=== PATIENT | male | born 1945 | race Caucasian/White ===

== ENCOUNTER 2017-06-11 16:45 | Observation (INO) | payer MEDICARE ==
[2017-06-11] MEDS ORDERED: Acetaminophen 500 MG TAB ONE (17:59)
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
[2017-06-11] MEDS ORDERED: Dextrose 5% in Water 1,000 ML IV PRN (18:48)
[2017-06-11] MEDS ORDERED: HumaLOG 300 UNITS/3 ML VIAL SC PRN (18:48)
[2017-06-11] MEDS ORDERED: Promethazine HCl 25 MG/ML VIAL IM PRN ×2 (18:48)
[2017-06-11] MEDS ORDERED: Ondansetron ODT 4 MG TAB PO PRN (18:48)
[2017-06-11] MEDS ORDERED: Ondansetron HCl/PF 4 MG/2 ML Vial IVP PRN (18:48)
[2017-06-11] MEDS ORDERED: Dextrose 50% Abboject 50 ML SYRINGE SLOW IVP PRN (18:48)
[2017-06-11] MEDS ORDERED: Rib Fracture Protocol PO SCH (19:00)
[2017-06-11] MEDS ORDERED: Cyclobenzaprine 10 MG TAB PO PRN (19:15)
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
[2017-06-11] MEDS: Ibuprofen 600 MG TAB PO SCH (21:28)
[2017-06-11] MEDS: Gabapentin 100 MG CAP PO SCH (21:28)
[2017-06-11] MEDS: Acetaminophen 500 MG TAB PO SCH (23:54)
[2017-06-11] MEDS: traMADol HCl 50 MG TAB PO SCH (23:55)
[2017-06-12 02:31] VITALS: BMI 26.3
[2017-06-12 05:09] LABS: #Eosinphils 0.1 thou/uL (0.0-0.7); #Lymphocytes 1.6 thou/uL (1.20-3.40); #Monocytes 0.5 thou/uL (0.11-0.59); #Neutrophils 4.2 thou/uL (1.40-6.50); %Basophils 0.5 % (0.0-1.0); %Eosinophils 1.6 % (0.0-10.0); %Lymphocytes 24.8 % (21.0-51.0); %Monocytes 7.4 % (0.0-10.0); %Neutrophils 65.7 % (42.0-75.0); Hemoglobin 14.4 g/dL (14.0-18.0); Mean Corpuscular HGB CONC 32.7 g/dL (32.0-36.0); Mean Corpuscular Hemoglobin 30.1 pg (27.0-31.0); Mean Platelet Volume 7.4 fL (7.4-10.4); Platelet Count 158 thou/uL (130-400); RBC Distribution Width 11.7 % (11.5-14.5); Red Blood Cell (RBC) Count 4.79 mill/uL (4.70-6.10); White Blood Cell (WBC) Count 6.4 thou/uL (4.8-10.8)
[2017-06-12 05:37] LABS: ALT (SGPT) 26 U/L (8-55); AST (SGOT) 24 U/L (5-34); Albumin 3.9 g/dL (3.4-4.8); Alkaline Phosphatase 76 U/L (40-150); Anion Gap 11 mmol/L (10-20); BUN (Urea Nitrogen) 17 mg/dL (8.4-25.7); Bilirubin, Total 0.7 mg/dL (0.2-1.2); Calc. Creatinine Clearance 76 mL/min (70-130); Calcium 9.1 mg/dL (7.8-10.44); Carbon Dioxide 25 mmol/L (23-31); Chloride 107 mmol/L (98-107); Estimated GFR-MDRD 59; Globulin 2.8 g/dL (2.4-3.5); Glucose 215 mg/dL (80-115); Lipase 170 U/L (8-78); Potassium 4.2 mmol/L (3.5-5.1); Protein, Total 6.7 g/dL (5.8-8.1); Sodium 139 mmol/L (136-145)
[2017-06-12] MEDS: Acetaminophen 500 MG TAB PO SCH ×2 (05:47→12:03)
[2017-06-12] MEDS: traMADol HCl 50 MG TAB PO SCH ×2 (05:47→12:03)
[2017-06-12] MEDS: Ibuprofen 600 MG TAB PO SCH (05:47)
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
[2017-06-12] MEDS ORDERED: Carvedilol 3.125 MG TAB PO SCH (08:00)
[2017-06-12] MEDS: Gabapentin 100 MG CAP PO SCH (08:46)
[2017-06-12] MEDS ORDERED: Amlodipine 5 MG TAB PO SCH (09:00)
[2017-06-12 11:29] VITALS: BP 146/83; TEMP 97.9
== END 2017-06-12 12:10 | disposition home or self-care (01) ==
LOC: ERS 16:45 → SURG A 18:48
PROVIDERS: ADMIT Surgery; ATTEND Surgery
DX: S32.010A Wedge compression fracture of first lumbar vertebra, initial encounter for closed fracture (principal); S32.020A Wedge compression fracture of second lumbar vertebra, initial encounter for closed fracture; E11.9 Type 2 diabetes mellitus without complications; I10 Essential (primary) hypertension; I25.10 Atherosclerotic heart disease of native coronary artery without angina pectoris; G89.11 Acute pain due to trauma; Z95.1 Presence of aortocoronary bypass graft; Z95.5 Presence of coronary angioplasty implant and graft; Z79.02 Long term (current) use of antithrombotics/antiplatelets; Z79.82 Long term (current) use of aspirin; Z79.84 Long term (current) use of oral hypoglycemic drugs; Z79.899 Other long term (current) drug therapy; V53.5XXA Driver of pick-up truck or van injured in collision with car, pick-up truck or van in traffic accident, initial encounter
CPT/HCPCS: 71045; 72100; 72170; 80053; 82962 ×2; 83690; 85025; 94640; 97139; 99285; G0378; G8978; G8979; G8980; 36415; 36416; G0390; J7620

== ENCOUNTER 2017-07-04 13:51 | Outpatient (CLI) | payer MEDICARE ==
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
== END 2017-07-04 13:52 | disposition home or self-care (01) ==
LOC: TBSIIMAG 13:51
PROVIDERS: ATTEND Neurological Surgery
DX: S32.019A Unspecified fracture of first lumbar vertebra, initial encounter for closed fracture (principal); S32.029A Unspecified fracture of second lumbar vertebra, initial encounter for closed fracture
CPT/HCPCS: 72100

== ENCOUNTER 2017-08-30 12:32 | Outpatient (CLI) | payer MEDICARE ==
--- NOTE | 2017-08-30 13:55 | RAD ---
LUMBAR SPINE SERIES TWO VIEWS: HISTORY: Follow-up fracture. FINDINGS: The superior endplate L1 and L2 compression fractures are again demonstrated. They are felt to be st able, as compared to the prior study. Arthritic changes of the spine are noted. The bones are diffu sely demineralized. IMPRESSION: Stable superior endplate L1 and L2 compression fractures. POS: [facility]
== END 2017-08-30 12:33 | disposition home or self-care (01) ==
LOC: TBSIIMAG 12:32
PROVIDERS: ATTEND Neurological Surgery
DX: M48.56XA Collapsed vertebra, not elsewhere classified, lumbar region, initial encounter for fracture (principal)
CPT/HCPCS: 72100

== ENCOUNTER 2017-11-26 07:38 | Emergency (ER) | payer MEDICARE ==
[2017-11-26] MEDS ORDERED: hydrALAZINE 20 MG/ML VIAL ONE ×2 (08:17→09:02)
[2017-11-26 08:45] LABS: ALT (SGPT) 26 U/L (8-55); AST (SGOT) 27 U/L (5-34); Albumin 4.3 g/dL (3.4-4.8); Alkaline Phosphatase 74 U/L (40-150); Anion Gap 16 mmol/L (10-20); BUN (Urea Nitrogen) 14 mg/dL (8.4-25.7); Bilirubin, Total 0.6 mg/dL (0.2-1.2); CK (CPK) 89 U/L (30-200); Calc. Creatinine Clearance 0 mL/min (70-130); Calcium 9.5 mg/dL (7.8-10.44); Carbon Dioxide 18 mmol/L (23-31); Chloride 108 mmol/L (98-107); Estimated GFR-MDRD 73; Globulin 3.4 g/dL (2.4-3.5); Glucose 207 mg/dL (80-115); Potassium 4.3 mmol/L (3.5-5.1); Protein, Total 7.7 g/dL (5.8-8.1); Sodium 138 mmol/L (136-145)
[2017-11-26 08:47] LABS: CKMB 1.3 ng/mL (0-6.6); Troponin I 0.054 ng/mL (< 0.028)
[2017-11-26 08:48] LABS: #Eosinphils 0.1 thou/uL (0.0-0.7); #Lymphocytes 1.6 thou/uL (1.20-3.40); #Monocytes 0.4 thou/uL (0.11-0.59); #Neutrophils 3.2 thou/uL (1.40-6.50); %Basophils 0.3 % (0.0-1.0); %Eosinophils 1.7 % (0.0-10.0); %Lymphocytes 30.9 % (21.0-51.0); %Monocytes 7.4 % (0.0-10.0); %Neutrophils 59.7 % (42.0-75.0); Hemoglobin 15.3 g/dL (14.0-18.0); Mean Corpuscular HGB CONC 34.8 g/dL (32.0-36.0); Mean Corpuscular Hemoglobin 31.2 pg (27.0-31.0); Mean Corpuscular Volume 89.7 fL (78.0-98.0); Mean Platelet Volume 7.8 fL (7.4-10.4); Platelet Count 176 thou/uL (130-400); RBC Distribution Width 11.9 % (11.5-14.5); Red Blood Cell (RBC) Count 4.91 mill/uL (4.70-6.10); White Blood Cell (WBC) Count 5.3 thou/uL (4.8-10.8)
--- NOTE | 2017-11-26 08:55 | RAD ---
AP VIEW OF CHEST: Date: 11/26/17 INDICATION: 71-year-old male with chest pain, hypertension, and pain. IMPRESSION: No acute abnormality. Examination is not appreciably changed from the comparison dated 06/11/17. POS: [facility]
[2017-11-26 11:00] LABS: CKMB 1.4 ng/mL (0-6.6); Troponin I 0.052 ng/mL (< 0.028)
== END 2017-11-26 11:27 | disposition home or self-care (01) ==
LOC: ERS 07:38
DX: I16.0 Hypertensive urgency (principal); E11.9 Type 2 diabetes mellitus without complications; I10 Essential (primary) hypertension; Z79.82 Long term (current) use of aspirin; Z79.899 Other long term (current) drug therapy
CPT/HCPCS: 36415; 71045; 80053; 82550; 82553; 83880; 84484; 85025; 93005; 96374; 96376; J0360

== ENCOUNTER 2017-11-28 18:31 | Emergency (ER) | payer MEDICARE ==
[2017-11-28 18:54] LABS: #Basophils 0.1 thou/uL (0.0-0.2); #Eosinphils 0.1 thou/uL (0.0-0.7); #Lymphocytes 2.8 thou/uL (1.20-3.40); #Monocytes 0.5 thou/uL (0.11-0.59); #Neutrophils 3.8 thou/uL (1.40-6.50); %Basophils 0.8 % (0.0-1.0); %Neutrophils 52.2 % (42.0-75.0); Hemoglobin 16.1 g/dL (14.0-18.0); Mean Corpuscular HGB CONC 34.3 g/dL (32.0-36.0); Mean Corpuscular Hemoglobin 30.4 pg (27.0-31.0); Mean Corpuscular Volume 88.7 fL (78.0-98.0); Mean Platelet Volume 7.4 fL (7.4-10.4); Platelet Count 204 thou/uL (130-400); RBC Distribution Width 12.1 % (11.5-14.5); White Blood Cell (WBC) Count 7.3 thou/uL (4.8-10.8)
[2017-11-28 19:17] LABS: ALT (SGPT) 23 U/L (8-55); AST (SGOT) 24 U/L (5-34); Albumin 4.6 g/dL (3.4-4.8); Alkaline Phosphatase 79 U/L (40-150); Anion Gap 14 mmol/L (10-20); BUN (Urea Nitrogen) 17 mg/dL (8.4-25.7); Bilirubin, Total 0.5 mg/dL (0.2-1.2); CK (CPK) 87 U/L (30-200); Calc. Creatinine Clearance 0 mL/min (70-130); Calcium 10.5 mg/dL (7.8-10.44); Carbon Dioxide 26 mmol/L (23-31); Chloride 104 mmol/L (98-107); Estimated GFR-MDRD 61; Globulin 3.5 g/dL (2.4-3.5); Glucose 165 mg/dL (80-115); Lipase 38 U/L (8-78); Potassium 4.5 mmol/L (3.5-5.1); Protein, Total 8.1 g/dL (5.8-8.1); Sodium 139 mmol/L (136-145)
--- NOTE | 2017-11-28 19:21 | RAD ---
RADIOGRAPH CHEST 1 VIEW: HISTORY: A 71-year-old male with chest pain. FINDINGS: There are no air space densities, pulmonary edema, pneumothorax, or cardiomegaly. The lateral costop hrenic angles are sharp. Sternotomy wires. IMPRESSION: No acute cardiopulmonary findings. prema [] POS: [facility]
[2017-11-28 19:29] LABS: CKMB 1.4 ng/mL (0-6.6); Troponin I 0.063 ng/mL (< 0.028)
== END 2017-11-28 20:02 | disposition home or self-care (01) ==
LOC: ERS 18:31
DX: I16.0 Hypertensive urgency (principal); E11.9 Type 2 diabetes mellitus without complications; I10 Essential (primary) hypertension; Z79.899 Other long term (current) drug therapy; Z79.82 Long term (current) use of aspirin; Z79.891 Long term (current) use of opiate analgesic
CPT/HCPCS: 71045; 80053; 82550; 82553; 83690; 83880; 84484; 85025; 93005

== ENCOUNTER 2017-12-20 10:14 | Outpatient (CLI) | payer MEDICARE | END 2017-12-20 10:15 | disposition home or self-care (01) | LOC: BICRAD 10:14 | PROVIDERS: ATTEND Family Medicine | DX: M25.532 Pain in left wrist (principal); S49.92XA Unspecified injury of left shoulder and upper arm, initial encounter; E11.9 Type 2 diabetes mellitus without complications | CPT/HCPCS: 36415; 80053; 80061; 81001; 83036; 85025 ==

== ENCOUNTER 2018-02-21 08:31 | Inpatient (IN) | payer MEDICARE ==
[2018-02-21 09:10] LABS: #Eosinphils 0.1 thou/uL (0.0-0.7); #Lymphocytes 1.9 thou/uL (1.20-3.40); #Monocytes 0.4 thou/uL (0.11-0.59); #Neutrophils 3.8 thou/uL (1.40-6.50); %Basophils 0.6 % (0.0-1.0); %Eosinophils 1.6 % (0.0-10.0); %Lymphocytes 30.4 % (21.0-51.0); %Monocytes 6.6 % (0.0-10.0); %Neutrophils 60.8 % (42.0-75.0); Hemoglobin 15.7 g/dL (14.0-18.0); Mean Corpuscular Hemoglobin 29.9 pg (27.0-31.0); Mean Corpuscular Volume 90.7 fL (78.0-98.0); Mean Platelet Volume 8.1 fL (7.4-10.4); Platelet Count 203 thou/uL (130-400); Red Blood Cell (RBC) Count 5.27 mill/uL (4.70-6.10); White Blood Cell (WBC) Count 6.3 thou/uL (4.8-10.8)
--- NOTE | 2018-02-21 09:10 | RAD ---
PORTABLE CHEST ONE VIEW: Date: 02-21-18 Time: 8:49 a.m. History: Back pain, coronary artery disease. FINDINGS: Comparison made with exam of 11-28-17. Changes of median sternotomy are again seen. Heart size is normal. The aorta is tortuous. The lungs a re well expanded without focal areas of consolidation, pneumothorax or pleural effusions. IMPRESSION: No radiographic evidence of acute cardiopulmonary process. POS: [facility]
[2018-02-21 09:17] LABS: ALT (SGPT) 20 U/L (8-55); AST (SGOT) 25 U/L (5-34); Albumin 4.4 g/dL (3.4-4.8); Alkaline Phosphatase 71 U/L (40-150); Anion Gap 14 mmol/L (10-20); BUN (Urea Nitrogen) 16 mg/dL (8.4-25.7); Bilirubin, Total 0.7 mg/dL (0.2-1.2); CK (CPK) 83 U/L (30-200); Calc. Creatinine Clearance 0 mL/min (70-130); Calcium 9.6 mg/dL (7.8-10.44); Carbon Dioxide 23 mmol/L (23-31); Chloride 106 mmol/L (98-107); Estimated GFR-MDRD 70; Globulin 3.4 g/dL (2.4-3.5); Glucose 174 mg/dL (80-115); Potassium 4.2 mmol/L (3.5-5.1); Protein, Total 7.8 g/dL (5.8-8.1); Sodium 139 mmol/L (136-145)
[2018-02-21 09:22] LABS: CKMB 1.7 ng/mL (0-6.6)
[2018-02-21 12:20] LABS: Troponin I 0.078 ng/mL (< 0.028)
[2018-02-21] MEDS ORDERED: Dextrose 5% in Water 1,000 ML IV PRN (13:29)
[2018-02-21] MEDS ORDERED: Zolpidem Tartrate 5 MG TAB PO PRN (13:29)
[2018-02-21] MEDS ORDERED: Insulin Regular 300 UNITS/3 ML VIAL SC PRN (13:29)
[2018-02-21] MEDS ORDERED: Acetaminophen 325 MG TAB PO PRN (13:29)
[2018-02-21] MEDS ORDERED: Dextrose 50% Abboject 50 ML SYRINGE SLOW IVP PRN (13:29)
[2018-02-21] MEDS ORDERED: Ondansetron PF 4 MG/2 ML Vial IVP PRN (13:29)
[2018-02-21] MEDS ORDERED: Ondansetron ODT 4 MG TAB PO PRN (13:29)
[2018-02-21] MEDS ORDERED: Mag-Al 1200 mg/1200 mg/30 ML UDCUP PO PRN (13:33)
[2018-02-21 15:26] LABS: Troponin I 0.064 ng/mL (< 0.028)
[2018-02-21] MEDS: Glimepiride 4 MG TAB PO SCH (16:29)
[2018-02-21] MEDS: Acetaminophen 500 MG TAB PO SCH ×4 (17:33→21:23)
[2018-02-21 17:48] VITALS: BMI 26.9
--- NOTE | 2018-02-21 18:46 | HP ---
HISTORY OF PRESENT ILLNESS: The patient is a 72-year-old male with known history of atherosclerotic coronary artery disease. He reports in the emergency room complaining of upper back pain with some pain noted to the right sided of his jaw. This is similar pain that he had had previously to MT, which required cardiac bypass surgery. He noted the onset of pain yesterday, continued to worsen. He did not note any shortness of breath. No fever was noted. He brought himself to the emergency room. He was seen and evaluated in the emergency room. EKG showed further progression of the left bundle branch block as well as initial troponin of 0.080, which was mildly elevated. Otherwise, no other medical complaints were noted. The patient was treated in the emergency room. He had resolution of his discomfort with aspirin 325 mg. Upon my arrival, the patient was resting comfortably. He did not note any chest pain during this time. No shortness of breath. Just noted that he had upper back and neck pain as well as right jaw pain, which was similar to previous series of problems, which go back to previous MT requiring bypass surgery. Otherwise, he notes no other medical complaints at this time. He is currently resting comfortably. ALLERGIES: HE HAS NO KNOWN ALLERGIES. CURRENT MEDICATIONS: 1. Aspirin 81 mg daily. 2. Amlodipine 5 mg daily. 3. Plavix 75 mg daily. 4. Glimepiride 4 mg one tablet b.i.d. 5. Pantoprazole 40 mg daily. 6. Trulicity 1.5 mg shot per week. 7. Clonidine 0.1 mg as needed for elevated blood pressure. 8. Carvedilol 3.125 mg b.i.d. 9. Toujeo SoloStar insulin 10 units daily. PAST MEDICAL HISTORY: Medical history is positive for atherosclerotic coronary artery disease, hypertension, type 2 diabetes mellitus. PAST SURGICAL HISTORY: Positive for tonsillectomy, cardiac bypass in 2001, and repeat cardiac bypass in 2009. FAMILY HISTORY: Positive for atherosclerotic coronary artery disease. SOCIAL AND PERSONAL HISTORY: He is retired. He is . He does not smoke nor he drinks alcohol. PHYSICAL EXAMINATION: VITAL SIGNS: BP is 151/98, pulse 85, respirations 20, O2 sat is 95% on room air. GENERAL: He is alert and active. Does not appear to be in any distress. HEENT: Normocephalic, atraumatic. Extraocular muscles intact. . NECK: Supple. Full range of motion. No masses. LUNGS: Clear. HEART: Reveals regular rate and rhythm without murmur, gallops, or rubs. ABDOMEN: Soft, nontender. Bowel sounds present and active. No hepatosplenomegaly. rebound or guarding noted at this time. EXTREMITIES: No clubbing, edema, or cyanosis. NEUROLOGIC: He is alert and oriented x3. He is able to move all extremities. Responds to all verbal commands. LABORATORY DATA: His hemoglobin is 14.7, hematocrit 47.8. Sodium 139, potassium 4.2, chloride 106, CO2 of 23, BUN 16, creatinine 1.05. Blood sugar 174. Troponin 0.80. Final troponin 0.78. Chest x-ray, no acute cardiopulmonary process is identified. EKG does reveal complete right bundle branch block. This apparently is different than previous EKG, which has showed incomplete left bundle branch block. IMPRESSION: A 72-year-old male with history of atherosclerotic coronary artery disease, who has symptoms similar to previous bouts of myocardial infarction elevated troponins with EKG changes. PLAN: The patient will be admitted to observation. Cardiology consult will be obtained. We will continue current treatment protocol at this time. Job ID: [id number]
[2018-02-21] MEDS: Carvedilol 3.125 MG TAB PO SCH (21:23)
[2018-02-22] MEDS: Acetaminophen 500 MG TAB PO SCH ×3 (06:51→17:04)
[2018-02-22] MEDS ORDERED: Enoxaparin Sodium 40 MG/0.4 ML SYRINGE SC SCH (09:00)
[2018-02-22] MEDS ORDERED: Amlodipine 5 MG TAB PO SCH (09:00)
[2018-02-22] MEDS ORDERED: Clopidogrel Bisulfate 75 MG TAB PO SCH (09:00)
[2018-02-22 09:30] VITALS: TEMP 98.3
--- NOTE | 2018-02-22 10:50 | PDOC.CTH ---
<Kristel Hernandez - Last Filed: 02/22/18 10:48> Cardiology Progress Note - Subjective The pt seen and examined. No overnight events. No cardiac complaints. - Objective Vital Signs Temp Pulse Resp BP Pulse Ox 02/22/18 08:17 94 L 02/22/18 07:58 98.3 F 76 16 152/92 H 96 02/22/18 04:12 97.9 F 81 19 112/75 94 L Weight 209 lb 4.8 oz - Physical Examination General/Neuro: alert & oriented x3 Neck: no JVD present Lungs: CTA Heart: RRR Abdomen: soft Extremities: other: (No edema) - Telemetry Telemetry Rhythm: SR - Labs Result Diagrams: 02/21/18 08:43 02/21/18 08:43 Troponin/CKMB CK-MB (CK-2) 1.7 ng/mL (0-6.6) 02/21/18 08:43 Troponin I 0.064 ng/mL (< 0.028) H 02/21/18 14:45 - Assessment/Plan 1. HTN urgency - BP this AM is slightly high; however, he has not taken any AM BP med this AM. Will start Lisinopril 5 mg qd from today for HTN and hx of DM. 2. Hx of LBBB - no changed 3. CAD with Hx of CABG in 2004 and 2010; and Stent x1 in 08/2016 - stable; Stress test today; On Bblocker, Satin, Plavix and ASA. 4. DM type 2 - managed by PCP 5. Anxiety - stable MAR reviewed Review of Systems - Review of Systems Constitutional: reports: no symptoms reported EENTM: reports: no symptoms reported Respiratory: reports: no symptoms reported Cardiac (ROS): reports: no symptoms reported ABD/GI: reports: no symptoms reported : reports: no symptoms reported Musculoskeletal: reports: no symptoms reported Skin: reports: no symptoms reported <Therese Montes - Last Filed: 02/22/18 16:24> Cardiology Progress Note - Objective Vital Signs Temp Pulse Resp BP Pulse Ox 02/22/18 11:53 98.3 F 80 18 169/90 H 95 02/22/18 08:17 94 L 02/22/18 07:58 98.3 F 76 16 152/92 H 96 Weight 209 lb 4.8 oz - Labs Result Diagrams: 02/21/18 08:43 02/21/18 08:43 Troponin/CKMB CK-MB (CK-2) 1.7 ng/mL (0-6.6) 02/21/18 08:43 Troponin I 0.064 ng/mL (< 0.028) H 02/21/18 14:45 - Assessment/Plan pt. seen and eval. by me. Small area of possible ischemia. Known CAD. Treat medically for now. If symptoms return then consider cath. Okay to d/c to home. Follow up in 1 week with me in the office. RT to ER if symptoms return. Increase Coreg as tolerated. Increased lisinopril. Chest clear. RRR. LBBB is not new from his last office visit.
[2018-02-22] MEDS ORDERED: Lisinopril 5 MG TAB PO SCH ×2 (11:00→12:00)
[2018-02-22] MEDS: Glimepiride 4 MG TAB PO SCH ×2 (11:59→17:04)
[2018-02-22] MEDS: Carvedilol 3.125 MG TAB PO SCH (12:00)
--- NOTE | 2018-02-22 15:00 | NM ---
NUCLEAR MEDICINE CARDIAC MYOCARDIAL PERFUSION SPECT EJECTION FRACTION STUDY WALL MOTION CINE: DATE: 02/22/2018. HISTORY: A 72-year-old male with coronary artery disease, hypertension, and diabetes mellitus, status post cor onary artery bypass graft surgery, presents with chest pain. TECHNIQUE: Number of days: One. Rest study: Tc99m sestamibi (Cardiolite) dose: 10.0 mCi. Pharmacologic stress: Lexiscan dose: 0.4 mg Stress study: Tc99m sestamibi (Cardiolite) dose: 32.0 mCi. FINDINGS: CARDIAC (MYOCARDIAL PERFUSION) SPECT There is a reversible perfusion defect involving the apex, extending to involve the small adjacent po rtions of the inferolateral and anteroseptal regions near the apex. There is a subtle finding of possible reversible perfusion defect involving a small portion of the an terolateral wall. EJECTION FRACTION STUDY EF = 52%. WALL MOTION CINE Severe septal hypokinesis, also involving the apex. IMPRESSION: 1. Suspicious for reversible ischemia at the cardiac apex. 2. Questionable smaller region of reversible ischemia in the anterolateral wall. FELICITY Mo POS: [facility]
[2018-02-22] MEDS ORDERED: Regadenoson 0.4 MG/5 ML SYRINGE ONE (15:26)
--- NOTE | 2018-02-22 15:53 | CON ---
DATE OF CONSULTATION: 02/22/2018 SUBJECTIVE: Mr. Kellogg is feeling better. He has had no further chest pain or back pain. OBJECTIVE: VITAL SIGNS: His blood pressure is 169/90, temperature 98.3. LUNGS: Clear. HEART: Reveals no murmur. IMPRESSION: Chest pain and back pain, possible angina equivalent. PLAN: The patient had undergone stress test results. Further recommendation per Cardiology. Job ID: [id number]
[2018-02-22] MEDS ORDERED: Carvedilol 3.125 MG TAB PO SCH (16:21)
[2018-02-22 16:44] VITALS: BP 128/81
[2018-02-22] MEDS ORDERED: Atorvastatin Calcium 20 MG TAB PO SCH (21:00)
[2018-02-22] MEDS ORDERED: Carvedilol 6.25 MG TAB PO SCH (21:00)
[2018-02-23] MEDS ORDERED: Lisinopril 5 MG TAB PO SCH (09:00)
[2018-02-23] MEDS ORDERED: Lisinopril 10 MG TAB PO SCH (09:00)
[2018-02-27] MEDS ORDERED: (Dulaglutide [Trulicity] 1.5 MG) SQ SCH (09:00)
== END 2018-02-22 17:55 | disposition home or self-care (01) | DRG 303 ==
LOC: ERS 08:31 → ERHOLD 10:05 → 2NO 15:14
PROVIDERS: ADMIT Family Medicine; ATTEND Family Medicine
DX: I25.110 Atherosclerotic heart disease of native coronary artery with unstable angina pectoris (principal); Z95.1 Presence of aortocoronary bypass graft; I10 Essential (primary) hypertension; E11.9 Type 2 diabetes mellitus without complications; I25.2 Old myocardial infarction
CPT/HCPCS: 36415; 36416; 71045; 78452; 80053; 82550; 82553; 83690; 83880; 84484; 85025; 93005; 93017; 94760; 96360; 96361; A9500; J1650; J2785

== ENCOUNTER 2019-08-15 00:47 | Observation (INO) | payer MEDICARE ==
[2019-08-15] MEDS ORDERED: Nitroglycerin 0.4 MG TAB 1 EACH ONE (01:18)
[2019-08-15] MEDS ORDERED: Nitroglycerin 2% Ointment 1 INCH/1 GM Packet ONE (01:18)
[2019-08-15 01:28] LABS: #Basophils 0.1 thou/uL (0.0-0.2); #Eosinphils 0.1 thou/uL (0.0-0.7); #Lymphocytes 2.4 thou/uL (1.20-3.40); #Monocytes 0.5 thou/uL (0.11-0.59); #Neutrophils 3.3 thou/uL (1.40-6.50); %Basophils 0.9 % (0.0-1.0); %Eosinophils 2.3 % (0.0-10.0); %Monocytes 7.9 % (0.0-10.0); Hemoglobin 15.5 g/dL (14.0-18.0); Mean Corpuscular HGB CONC 32.8 g/dL (32.0-36.0); Mean Corpuscular Hemoglobin 29.8 pg (27.0-31.0); Mean Corpuscular Volume 91.1 fL (78.0-98.0); Mean Platelet Volume 8.1 fL (7.4-10.4); Platelet Count 183 thou/uL (130-400); RBC Distribution Width 12.3 % (11.5-14.5); Red Blood Cell (RBC) Count 5.18 mill/uL (4.70-6.10); White Blood Cell (WBC) Count 6.4 thou/uL (4.8-10.8)
[2019-08-15 01:47] LABS: ALT (SGPT) 11 U/L (8-55); AST (SGOT) 14 U/L (5-34); Albumin 4.2 g/dL (3.4-4.8); Alkaline Phosphatase 70 U/L (40-110); Anion Gap 15 mmol/L (10-20); BUN (Urea Nitrogen) 21 mg/dL (8.4-25.7); Bilirubin, Total 0.4 mg/dL (0.2-1.2); Calc. Creatinine Clearance 0 mL/min (70-130); Calcium 9.3 mg/dL (7.8-10.44); Carbon Dioxide 20 mmol/L (23-31); Chloride 108 mmol/L (98-107); Estimated GFR-MDRD 60; Globulin 3.3 g/dL (2.4-3.5); Glucose 215 mg/dL (83-110); Potassium 4.1 mmol/L (3.5-5.1); Protein, Total 7.5 g/dL (5.8-8.1); Sodium 139 mmol/L (136-145)
[2019-08-15] MEDS ORDERED: Enoxaparin Sodium 100 MG/ML SYRINGE ONE (02:06)
[2019-08-15 02:10] LABS: CKMB 1.6 ng/mL (0-6.6)
[2019-08-15] MEDS ORDERED: Nitroglycerin 0.4 MG TAB (25 Tab Bottle) PO PRN (03:11)
[2019-08-15] MEDS ORDERED: Dextrose 5% in Water 1,000 ML IV PRN (03:14)
[2019-08-15] MEDS ORDERED: HumaLOG 300 UNITS/3 ML VIAL SC PRN ×2 (03:14)
[2019-08-15] MEDS ORDERED: Dextrose 50% Abboject 50 ML SYRINGE SLOW IVP PRN (03:14)
[2019-08-15] MEDS ORDERED: Acetaminophen 325 MG TAB PO PRN (03:16)
[2019-08-15] MEDS ORDERED: hydrALAZINE 20 MG/ML VIAL SLOW IVP PRN (03:19)
--- NOTE | 2019-08-15 03:30 | PDOC.HHP ---
Hospitalist HPI - History of Present Illness High blood pressure History of Present Illness: PCP: Dr. Joe Gloria Septic Technician: Dr. Montes The patient is a 73/M with PMH significant for CABG x3 (2001), CABG x 4 (2009), MA w/ stent (2017), HTN, HLD, and DMII that presents to the ER for the above complaint. The patient reports elevated blood pressure readings for the past 2- 3 weeks. Recalls, two distinct episodes. The last episode was at 1800 this evening. Reports while working in his yard, "feeling odd, maybe light headed" with associated chest pain, describes as generalized, dull aching, pressure. He gets this feeling when his blood pressure is elevated. He checked his blood pressure and it was SBP 200s, so he took aspirin and an "extra blood pressure pill" and the symptoms resolved. Later, that evening, while laying down, he had the same feeling, checked his blood pressure and it was elevated again. Denies heart palpitations, lower extremity swelling. Denies SOB, cough or wheezing. Denies abdominal pain, nausea and diaphoresis. States that this feeling is different then when he had his heart attack. He decided to go to the ER for further evaluation. ED Course: EKG SA 68, LBBB, no acute pathology Trop 0.128, BNP 43.7 CXR no acute process Given: LMWH 1mg/KG ASA 324mg nitro paste nitro SL x 1 dose Allergies: NKDA Home Medications: unable to reconcile at bedside with patient Hospitalist ROS - Review of Systems Constitutional: denies: fever, chills, sweats, weakness, malaise, other Eyes: denies: pain, vision change, conjunctivae inflammation, eyelid inflammation, redness, other ENT: denies: ear pain, ear discharge, nose pain, nose discharge, nose congestion , mouth pain, mouth swelling, throat pain, throat swelling, other Respiratory: denies: cough, dry, shortness of breath, hemoptysis, SOB with excertion, pleuritic pain, sputum, wheezing, other Cardiovascular: reports: chest pain, light headedness. denies: palpitations, orthopnea, paroxysmal noc. dyspnea, edema Gastrointestinal: denies: nausea, vomiting, abdominal pain, diarrhea, constipation, melena, hematochezia, other Genitourinary: denies: dysuria, frequency, incontinence, hematuria, retention, other Skin: denies: rash, lesions, shyam, bruising, other Neurological: denies: weakness, numbness, incoordination, change in speech, confusion, seizures, other Hospitalist History - Past Medical History Cardiac: reports: CAD, HTN, MA Endocrine: reports: Diabetes (type II) - Past Surgical History Past Surgical History: reports: CABG (X3 (2001) and X4 (2009)), Tonsillectomy, Other (CAD x 1 (2017)) - Family History Family History: reports: cardiac disorder - Social History Smoking Status: Never smoker Alcohol: reports: None Drugs: reports: none Living Situation: With Family Occupation: Lives with spouse in [place], retired Activity level: independent ambulation - Exam General Appearance: NAD, awake alert Eye: anicteric sclera ENT: normocephalic atraumatic Neck: supple, no JVD Heart: RRR, no murmur, no gallops, no rubs, normal peripheral pulses Respiratory: CTAB, no wheezes, no rales, no ronchi, no tachypnea Gastrointestinal: soft, non-tender, normal bowel sounds, no guarding, no rigidity Extremities: no clubbing, no edema Skin: no lesions, no rashes Neurological: no focal deficits Psychiatric: normal affect, A&O x 3 Hospitalist Results - Labs Result Diagrams: 08/15/19 01:14 08/15/19 01:14 Lab results: WBC 6.4 thou/uL (4.8-10.8) 08/15/19 01:14 Hgb 15.5 g/dL (14.0-18.0) 08/15/19 01:14 Hct 47.2 % (42.0-52.0) 08/15/19 01:14 MCV 91.1 fL (78.0-98.0) 08/15/19 01:14 Plt Count 183 thou/uL (130-400) 08/15/19 01:14 Neutrophils % 52.0 % (42.0-75.0) 08/15/19 01:14 Sodium 139 mmol/L (136-145) 08/15/19 01:14 Potassium 4.1 mmol/L (3.5-5.1) 08/15/19 01:14 Chloride 108 mmol/L (98-107) H 08/15/19 01:14 Carbon Dioxide 20 mmol/L (23-31) L 08/15/19 01:14 BUN 21 mg/dL (8.4-25.7) 08/15/19 01:14 Creatinine 1.19 mg/dL (0.7-1.3) 08/15/19 01:14 Glucose 215 mg/dL (83-110) H 08/15/19 01:14 Calcium 9.3 mg/dL (7.8-10.44) 08/15/19 01:14 Total Bilirubin 0.4 mg/dL (0.2-1.2) 08/15/19 01:14 AST 14 U/L (5-34) 08/15/19 01:14 ALT 11 U/L (8-55) 08/15/19 01:14 Alkaline Phosphatase 70 U/L (40-110) 08/15/19 01:14 CK-MB (CK-2) 1.6 ng/mL (0-6.6) 08/15/19 01:14 Troponin I 0.128 ng/mL (< 0.028) H 08/15/19 01:14 B-Natriuretic Peptide 43.7 pg/mL (0-100) 08/15/19 01:14 Serum Total Protein 7.5 g/dL (5.8-8.1) 08/15/19 01:14 Albumin 4.2 g/dL (3.4-4.8) 08/15/19 01:14 - EKG Interpretation EKG: SA - Radiology Interpretation Chest x-ray Status: report reviewed by nj Hospitalist H&P A/P - Problem (1) NSTEMI (non-ST elevated myocardial infarction) Code(s): I21.4 - NON-ST ELEVATION (NSTEMI) MYOCARDIAL INFARCTION Status: Acute Assessment and Plan: Admit to telemetry floor, observation status Expected length of stay less than 2 midnights Patient asymptomatic, denies CP or SOB EKG SA, LBBB, no acute pathology Trop 0.128 HEART Score 7 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 and cath 2017 after MA with stent placement Will trend trops order echocardiogram Continue LMWH, ASA, plavix and nitropaste and statin Check TSH, FLP, Mag, PT/INR consult cardiology (2) Hypertensive emergency Code(s): I16.1 - HYPERTENSIVE EMERGENCY Status: Acute Assessment and Plan: BP 170s on exam Will add prn hydralazine Will continue to monitor Blood pressure (3) DMII (diabetes mellitus, type 2) Status: Chronic Assessment and Plan: Will hold home antihyperglycemics Will start mild sliding scale AC/HS accuchecks (4) HTN (hypertension) Code(s): I10 - ESSENTIAL (PRIMARY) HYPERTENSION Status: Acute Assessment and Plan: Will restart home meds when reconciled by nursing (5) HLD (hyperlipidemia) Code(s): E78.5 - HYPERLIPIDEMIA, UNSPECIFIED Status: Acute - Plan Plan: Consult walking program no DVT prophylaxis Protonix GI prophylaxis Full Code MPOA is Joellen Kellogg at [phone] Sparks
[2019-08-15 03:39] VITALS: BMI 27.8
[2019-08-15] MEDS ORDERED: Ondansetron ODT 4 MG TAB SL PRN (03:58)
[2019-08-15] MEDS ORDERED: HYDROcodone/Acetaminophen 5/325 mg Tablet PO PRN ×2 (03:58)
[2019-08-15] MEDS ORDERED: Ondansetron PF 4 MG/2 ML Vial IVP PRN (03:58)
[2019-08-15 04:35] LABS: Prothrombin Time 12.8 sec (12.0-14.7)
[2019-08-15 04:44] LABS: Cardiac Risk 4.8 (Less than 4.5)
[2019-08-15 04:57] LABS: Troponin I 0.114 ng/mL (< 0.028)
[2019-08-15] MEDS ORDERED: Nitroglycerin 2% Ointment 1 INCH/1 GM Packet TOP SCH (06:00)
[2019-08-15] MEDS: Nitroglycerin 2% Ointment 1 INCH/1 GM Packet TOP SCH ×2 (07:27→14:49)
--- NOTE | 2019-08-15 07:47 | RAD ---
SINGLE VIEW OF THE CHEST: COMPARISON: 02/21/2018. HISTORY: Fluctuating blood pressure with hypertension and chest pain. FINDINGS: A single view of the chest shows a normal-size cardiomediastinal silhouette. The patient is status p ost sternotomy. There is no evidence of consolidation, mass, or pleural effusion. IMPRESSION: No evidence of acute cardiopulmonary disease. POS: [facility]
[2019-08-15 08:26] LABS: Troponin I 0.117 ng/mL (< 0.028)
[2019-08-15] MEDS: Aspirin 81 mg Enteric Coated Tablet PO SCH (08:49)
[2019-08-15] MEDS: Clopidogrel Bisulfate 75 MG TAB PO SCH (08:50)
[2019-08-15] MEDS ORDERED: Communication Order-Pharmacy FS SCH (10:30)
[2019-08-15] MEDS ORDERED: Iopamidol 370 76% 100 ML VIAL ONE (10:47)
--- NOTE | 2019-08-15 13:15 | PDOC.HOSPP ---
- Subjective Encounter Date: 08/15/19 Encounter Time: 10:30 Subjective: lying in hte bed, no chest pain, npo for cath this afternoon. - Objective Vital Signs & Weight: Vital Signs (12 hours) Temp Pulse Resp BP Pulse Ox 08/15/19 11:09 98.1 F 66 19 140/89 97 08/15/19 07:22 98.4 F 74 16 140/81 97 08/15/19 03:30 98.1 F 77 16 131/88 95 Weight Weight 211 lb I&O: 08/14/19 08/15/19 08/16/19 06:59 06:59 06:59 Intake Total 0 Balance 0 Result Diagrams: 08/15/19 01:14 08/15/19 01:14 Additional Labs: Accuchecks 08/15/19 08/15/19 10:32 06:12 POC Glucose 112 H 186 H Hospitalist ROS - Medication Medications: Active Medications Generic Name Dose Route Start Last Admin Trade Name Freq PRN Reason Stop Dose Admin Aspirin 81 mg 08/15/19 09:00 08/15/19 08:49 Ecotrin PO 81 mg DAILY MACHO Administration Clopidogrel Bisulfate 75 mg 08/15/19 09:00 08/15/19 08:50 Plavix PO 75 mg DAILY MACHO Administration Insulin Human Lispro 0 units 08/15/19 03:14 08/15/19 06:39 Humalog SC 2 unit .MILD SLIDING SCALE PRN Administration Mild Correctional Scale Nitroglycerin 0.5 inch 08/15/19 07:00 08/15/19 07:27 Nitro-Bid 2% Ointment TOP Not Given 0700,1500,2300 MACHO Sodium Chloride 10 ml 08/15/19 09:00 08/15/19 08:50 Flush - Normal Saline IVF 10 ml Q12HR MACHO Administration - Exam General Appearance: NAD, awake alert Eye: PERRL ENT: normocephalic atraumatic Neck: supple Heart: RRR Respiratory: CTAB, normal chest expansion Gastrointestinal: soft, normal bowel sounds Neurological: no focal deficits Hosp A/P - Plan (1) NSTEMI (non-ST elevated myocardial infarction) EKG SA, LBBB, no acute pathology Trop 0.128 HEART Score 7 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
[2019-08-15 13:28] LABS: Hemoglobin 15.4 g/dL (14.0-18.0); Platelet Count 188 thou/uL (130-400)
[2019-08-15] MEDS ORDERED: Midazolam HCl 2 mg/2 ml Vial ONE (15:04)
--- NOTE | 2019-08-15 15:31 | EKG ---
Test Reason : CHEST PRESSURE Blood Pressure : / mmHG Vent. Rate : 068 BPM Atrial Rate : 068 BPM P-R Int : 160 ms QRS Dur : 152 ms QT Int : 448 ms P-R-T Axes : 038 -27 135 degrees QTc Int : 476 ms Sinus rhythm with marked sinus arrhythmia Left bundle branch block Abnormal ECG No changes from JAN 2018 Confirmed by TIMUR GALLEGOS, CELINA Renteria ([id number]), technical writer and editor ZAK KRISHNAN ([id number]) on 08/15/2019 3:30:36 PM Referred By: Confirmed By:CELINA DING MD
[2019-08-15] MEDS ORDERED: Sodium Chloride 0.9% 200 ML IV PRN (16:57)
[2019-08-15] MEDS ORDERED: Acetaminophen/Codeine 30-300mg Tablet PO PRN ×2 (16:57)
[2019-08-15] MEDS ORDERED: Nitroglycerin 0.4 MG TAB (25 Tab Bottle) SL PRN (16:57)
[2019-08-15] MEDS ORDERED: Carvedilol 6.25 MG TAB PO SCH (17:00)
[2019-08-15] MEDS: Carvedilol 6.25 MG TAB PO SCH (18:16)
[2019-08-15] MEDS ORDERED: Atorvastatin Calcium 20 MG TAB PO SCH (21:00)
[2019-08-15] MEDS ORDERED: Enoxaparin Sodium 100 MG/ML SYRINGE SC SCH (21:00)
[2019-08-15] MEDS ORDERED: Atorvastatin Calcium 40 MG TAB PO SCH (21:00)
--- NOTE | 2019-08-16 01:10 | CON ---
DATE OF CONSULTATION: INDICATION FOR CONSULTATION: This is a 73-year-old patient who has been known to me for many years now. He has history of severe coronary artery disease, underwent bypass surgery in the past and actually about 3 years ago underwent angioplasty and stent placement to an intermediate branch. He presented again at this time, having what appeared to be a possible etn-EB-[id number] elevation myocardial infarction. He has had no significant chest discomfort. However, he had some shortness of breath and was unable to do his activities. He was out spreading grass seeds when he noticed that he became very fatigued and short of breath and he was unable to continue. He then had some episodes of hypertension. He presented to the hospital. He was found to have significant hypertension. This was then brought under better control, but he continued to have slight elevation of the blood pressure, but otherwise he was doing relatively well. He denied any further chest pain. His EKG showed sinus rhythm with a left bundle-branch block. Given his history of significant coronary artery disease with very small distal vessels and diffuse disease and history of diabetes, hypertension, he was advised to undergo cardiac catheterization to re-evaluate his coronary status. I have discussed with the patient in detail with my nurse practitioner. Please refer to the notes dictated by her for the past medical history, social history, family history, review of systems, allergies and medications. PHYSICAL EXAMINATION: GENERAL: On my physical examination, the patient is alert, oriented, has no significant complaints at this time. VITAL SIGNS: Blood pressure is 131/88, heart rate is 77 and regular, respiratory rate 16, O2 saturation is 95% on room air. HEENT: Shows the head to be normocephalic and atraumatic. Carotid pulses are present. CHEST: Clear to auscultation. There are no rales, rhonchi or wheezing. CARDIOVASCULAR: Reveals a regular rate and rhythm. Normal S1, S2. There is no significant S3, S4 noted. The second heart sound is slightly split. However, there are no other significant murmurs or heaves are noted. ABDOMEN: Soft, flat, nontender. Positive bowel sounds are present. EXTREMITIES: Show no clubbing, cyanosis, or edema. Pedal pulses are present. NEUROLOGIC: The patient appears to be fully intact. SKIN: Warm and dry. PSYCHOSOCIAL: He appears to be stable. LABORATORY DATA: Please refer to the notes already dictated, most pertinent was troponin I of 0.128, which then decreased down to 0.114 and then now stable at 0.117. Blood sugars are in the 112 to 186 range. His LDL cholesterol was 108. IMPRESSION AND PLAN: 1. A 73-year-old gentleman with a history of severe 3-vessel coronary artery disease, which on his last cardiac catheterization showed total occlusion of the soboba vessels with patent grafts. He has a PAREKH to the left anterior descending artery with diffuse disease noted in the soboba LAD beyond the anastomosis of the PAREKH. He had a vein graft which was a bifurcating graft, one going to the distal left anterior descending artery and one to an intermediate branch, this vessel was intermediate branch and underwent angioplasty and stent placement about 3 years ago. The other saphenous vein graft is to the right coronary artery which had no significant stenosis nor was any distal stenosis noted in the right coronary artery previously either in the graft or the soboba distal vessel. Also, there was a saphenous vein graft which was again a bifurcated graft which goes from a diagonal branch to the first obtuse marginal branch of left circumflex. This also was patent on the last cardiac catheterization. His ejection fraction also was well preserved. At this time, echocardiogram showed ejection fraction to be about 40% to 45%. I have explained to him that he needs to undergo repeat cardiac catheterization. I have explained to him the procedure, the risks to include bleeding, infection, possible myocardial infarction, CVA, renal insufficiency, allergic contrast reaction, the possibility of and he understands and agrees with plan for cardiac catheterization today. As far as his other diagnosis with hypertension and diabetes, this will be dealt by the primary care service. We will need to continue to manage his blood pressure and his medications, also with his cholesterol. We will try to start this gentleman on Ranexa or Praluent since he says he has never been able to take statins very well but does have severe coronary artery disease. Also likely, he will be started on Ranexa due to signs of ischemia. Job ID: [id number]
[2019-08-16] MEDS: Nitroglycerin 2% Ointment 1 INCH/1 GM Packet TOP SCH ×2 (02:15→06:26)
--- NOTE | 2019-08-16 06:46 | CON ---
DATE OF CONSULTATION: PRIMARY CARE DOCTOR: Dr. Joe Gloria. PRIMARY CREW CLERK: Dr. Katina Montes. REASON FOR CARDIOLOGY CONSULT: Non-STEMI. HISTORY OF PRESENT ILLNESS: Mr. Kellogg is a very pleasant 73-year-old male with a significant history of coronary artery disease with stent placements in 2016 and CABG in 2004 and redo CABG in 2010, hypertension, diabetes. The patient was doing really well. However, in the last few days, his blood pressure has been more than 190s/60s. He took extra medicine for hypertension. According to the patient's , he took extra carvedilol 6.25 mg with extra aspirin, which made his blood pressure stabilize. However, last night around midnight, he started feeling different and his blood pressure was more than 200 on the systolic. He took extra carvedilol last night with extra aspirin. However , his systolic blood pressure continued to be more than 190s. Also, he started having pressure in his chest. Due to those reasons, the patient decided to present to the emergency department for further evaluation and treatment. He did not take the nitroglycerin at home. However, after he received nitroglycerin sublingual and paste, his chest pain subsided. At this moment, the patient has complained of mild headache. The patient denied shortness of breath, dizziness, lightheadedness, palpitation, or any other complaint during the episode. The patient had echocardiogram done today with EF 45% to 50%, inferior hypokinesis, and grade 1 diastolic dysfunction, mild tricuspid regurgitation, and mild pulmonic regurgitation. The patient has a history of coronary artery disease with CABG in in 2004 with SVG to ramus and SVG to distal LAD and PAREKH to mid LAD. He had a redo bypass in 2010 with SVG to RCA and also the left circumflex. The patient had a stent placement in August 2016 in ramus. The patient had a stress test done in January 2018 suspicious for reversible ischemia at the apex, questionable smaller region of reversible ischemia in anterolateral wall. PAST MEDICAL HISTORY: Coronary artery disease, diabetes, hypertension, nephrolithiasis in 2018, and chronic left bundle branch block. PAST SURGICAL HISTORY: CABG in 2004, redo CABG in 2010, stent placement in the ramus in August 2016. FAMILY HISTORY: The patient's mother has medical history of coronary artery disease. The patient's aunt has a medical history of coronary artery disease and renal function failure. SOCIAL HISTORY: The patient is . He lives with his . He has children who live well. He is retired. He denied EtOH, tobacco, or illicit drug abuse. ALLERGIES: HE HAS NO KNOWN DRUG ALLERGIES. MEDICATIONS: 1. Aspirin 81 mg once a day. 2. Plavix 75 mg once a day. 3. Glimepiride 4 mg twice a day. 4. Lisinopril 10 mg once a day. 5. Insulin Humalog 25 units every morning. 6. Carvedilol 6.25 mg twice a day. REVIEW OF SYSTEMS: A 12-point review of systems negative unless otherwise mentioned in HPI. PHYSICAL EXAMINATION: VITAL SIGNS: Blood pressure 140/89, temperature 98.1, pulse is 66 and in sinus rhythm, respiratory rate is 19, O2 saturation 97% on room air. GENERAL: The patient is alert and oriented x4, not in acute distress. HEAD: Normocephalic, atraumatic. EYES: Extraocular muscle movement intact. ENT AND MOUTH: Oral and nasal mucosa moist without lesion. NECK: Supple. Normal range of motion. No bruits or thrill noted at the carotid artery area. RESPIRATORY: Clear to auscultation bilaterally. No wheezing, rales, or rhonchi noted. CARDIOVASCULAR: Regular rate and rhythm. Normal S1 and S2. No S3 or S4. No significant murmur, heaves, or thrill noted. 2+ pulses in bilateral upper and lower extremities. No edema in the lower extremities. ABDOMEN: Soft, nontender. No mass to palpation. Bowel sounds are present. SKIN: Warm and dry. No lesion, rash, or erythema noted. MUSCULOSKELETAL: The patient is able to move all extremities. The patient denied claudication. NEUROLOGIC: The patient is alert and oriented x4. PSYCHIATRIC: The patient's mood is appropriate. LABORATORY DATA: WBC 6.4, hemoglobin 15.5, hematocrit 47.2, platelets 183. INR 1.0. Sodium 139, potassium 4.1, BUN 21, creatinine 1.19, glucose 112, calcium 9.3, magnesium 2.0, AST 14, ALT 11. CK-MB 1.6. Troponin 0.128, 0.114, and 0.117. Total cholesterol 172, triglyceride 139, HDL 36, LDL 108. TSH is 0.9755. DIAGNOSTIC DATA: The patient's chest x-ray shows no evidence of acute cardiopulmonary process. ASSESSMENT AND PLAN: 1. Chest pain with indeterminate troponin level. The patient has been n.p.o. The patient has a plan to undergo cardiac catheterization this afternoon by Dr. Montes. At this moment, the patient denied any chest pain, heaviness, tightness, or any other cardiac complaints. He has a nitroglycerin patch on the chest at this moment. 2. Coronary artery disease with history of coronary artery bypass grafting and stent placement. The patient's condition is stable at this moment. He is on carvedilol 6.25 mg twice a day, lisinopril 10 mg once a day, aspirin 81 mg once a day, Plavix 75 mg once a day, and atorvastatin 20 mg once a day at home. Once the patient's vital signs are stable, carvedilol and lisinopril will be resumed possibly after cardiac catheterization. 3. Hypertension. The patient's blood pressure is stable at this moment without any scheduled blood pressure medicine. We would like to continue to monitor, and we will resume the patient's home blood pressure medications. 4. Diabetes which is managed by primary care doctor. 5. Hyperlipidemia. His LDL was 108. He was not on any cholesterol medicine due to side effect from statin. He had severe myalgia and joint pain with all statin he has tried. PCSK9 inhibitor may be the best choice of his cholesterol management once the patient is ready to discharge. Thank you very much for Cardiology consult request to participate in the care of this patient. We will follow along the patient's care team and make further recommendations as appropriate. Job ID: [id number] MTDD
[2019-08-16 07:32] VITALS: TEMP 97.8
[2019-08-16] MEDS: Carvedilol 6.25 MG TAB PO SCH (08:31)
[2019-08-16] MEDS: Clopidogrel Bisulfate 75 MG TAB PO SCH (08:32)
[2019-08-16] MEDS: Aspirin 81 mg Enteric Coated Tablet PO SCH (08:32)
--- NOTE | 2019-08-16 09:41 | PDOC.CPN ---
- Subjective Date: 08/16/19 Time: 08:00 Interval history: The pt seen and examined. No overnight events. No cardiac complaints. - Objective Allergies/Adverse Reactions: Allergies Allergy/AdvReac Type Severity Reaction Status Date / Time No Known Allergies Allergy Verified 06/16/19 11:36 Visit Medications: Current Medications Acetaminophen (Tylenol) 650 mg PO Q4H PRN PRN Reason: Headache/Fever/Mild Pain (1-3) Acetaminophen/Codeine Phosphate (Tylenol #3) 1 tab PO Q4H PRN PRN Reason: Mild Pain (1-3) Acetaminophen/Codeine Phosphate (Tylenol #3) 2 tab PO Q4H PRN PRN Reason: Moderate Pain (4-6) Aspirin (Ecotrin) 81 mg PO DAILY [facility] Last Admin: 08/16/19 08:32 Dose: 81 mg Atorvastatin Calcium (Lipitor) 40 mg PO [facility] Last Admin: 08/15/19 21:01 Dose: 40 mg Carvedilol (Coreg) 12.5 mg PO BID-[facility] Last Admin: 08/16/19 08:31 Dose: 12.5 mg Clopidogrel Bisulfate (Plavix) 75 mg PO DAILY [facility] Last Admin: 08/16/19 08:32 Dose: 75 mg Dextrose/Water (Dextrose 50%) 25 gm SLOW IVP PRN PRN PRN Reason: Hypoglycemia Glucagon (Glucagon) 1 mg IM PRN PRN PRN Reason: Hypoglycemia Hydralazine HCl (Apresoline) 10 mg SLOW IVP Q4H PRN PRN Reason: SBP > 180 or DBP > 105 Dextrose/Water (D5w) 1,000 mls @ 0 mls/hr IV .Q0M PRN PRN Reason: Hypoglycemia Sodium Chloride (Normal Saline 0.9%) 200 mls @ 0 mls/hr IV ONE PRN PRN Reason: SBP < 90 Stop: 08/16/19 16:58 Insulin Human Lispro (Humalog) 0 units SC .MILD SLIDING SCALE PRN PRN Reason: Mild Correctional Scale Last Admin: 08/15/19 06:39 Dose: 2 unit Insulin Human Lispro (Humalog) 0 units SC .BEDTIME SLIDING SC PRN PRN Reason: Bedtime Correctional Scale Nitroglycerin (Nitro-Bid 2% Ointment) 0.5 inch TOP 0700,1500,2300 [facility] Last Admin: 08/16/19 06:26 Dose: Not Given Nitroglycerin (Nitrostat) 0.4 mg SL Q5MIN PRN PRN Reason: Chest Pain Pantoprazole Sodium (Protonix) 40 mg PO HS [facility] Last Admin: 08/15/19 21:01 Dose: 40 mg Ranolazine (Ranexa) 500 mg PO BID [facility] Last Admin: 08/16/19 08:31 Dose: 500 mg Sodium Chloride (Flush - Normal Saline) 10 ml IVF Q12HR [facility] Last Admin: 08/16/19 08:32 Dose: 10 ml Vital Signs & Weight: Vital Signs Temp Pulse Resp BP Pulse Ox 08/16/19 07:27 97.8 F 62 15 128/78 97 08/16/19 04:00 98.3 F 69 18 122/79 98 08/16/19 02:15 94 L Weight 211 lb - Physical Exam General: alert & oriented x3 HEENT: mucus membranes moist Neck: supple neck Cardiac: regular rate and rhythm, S1/S2 Lungs: clear to auscultation Neuro: cranial nerve 2-12 intact - Labs Result Diagrams: 08/15/19 13:12 08/15/19 13:12 Troponin/CKMB CK-MB (CK-2) 1.6 ng/mL (0-6.6) 08/15/19 01:14 Troponin I 0.117 ng/mL (< 0.028) H 08/15/19 07:48 - Telemetry Sinus rhythms and dysrhythmias: sinus rhythm - Assessment/Plan Assessment/Plan: 1. NSTEMI with s/p LHC on 08/15/2019 with 100% occulded SVG-distal LAD, 50% stenosis in prox SVG-RCA, patent SVG-OM, patent PAREKH-LAD, but subtotal LAD with diffuse dz <2.0 mm vessel. - Ranexa 500mg BID was started from last night. 2. HTN urgency - well controlled with current med (holding Lisinopril for now since Renexa was started and Coreg was increased) 3. CAD with hx of multiple CABG - On coreg, ASA, and Plavix; Will start Repatha for Lipid management 4. HLD - per pt and family, he could not tolerate Lipitor and Crestor in past ( caused severe myalgia and joint pain) and Zetia (caused severe N&V); will start Repatha (the prescription will be sent from Dr Montes' office today) 5. DM type 2 6. Anxiety - Strongly recommend to manage his anxiety issue MAR reviewed * From Cardiac standpoint, the pt is stable to d/c home today
[2019-08-16 10:14] VITALS: BP 126/73
--- NOTE | 2019-08-16 12:45 | DIS ---
DATE OF ADMISSION: 08/15/2019 DATE OF DISCHARGE: 08/16/2019 DISCHARGE DIAGNOSES: 1. Non-ST elevated myocardial infarction, status post left heart catheterization on August 14. 2. Occlusion of SVG graft. 3. Hypertensive urgency. 4. Coronary artery disease with history of multiple coronary artery bypass grafting. 5. Hyperlipidemia. 6. Type 2 diabetes mellitus. DISCHARGE MEDICATIONS: 1. Ranexa 500 mg twice a day. 2. Coreg 12.5 mg twice a day. 3. Aspirin 81 mg daily. 4. Plavix 75 mg daily. 5. Glimepiride 4 mg twice a day. 6. Lantus 25 units in the morning. 7. Lisinopril 10 mg daily. PHYSICAL EXAMINATION: VITAL SIGNS: On the day of discharge, he is afebrile. His blood pressure is 128/78, saturating 99% on room air. GENERAL: The patient is alert, oriented, in no acute distress. He is quite actually anxious to go home. His is at bedside. CARDIOVASCULAR: Regular rate and rhythm without murmurs, rubs, or gallops. LUNGS: Clear to auscultation bilaterally without wheezing, rales, or rhonchi. ABDOMEN: Soft, nontender, nondistended. Good bowel sounds. EXTREMITIES: Without any pitting edema. HOSPITAL COURSE: A 73-year-old male with a history of significant coronary artery disease, admitted on August 14 with elevated blood pressure as well as chest discomfort. He had a cath which showed 100% occlusion of the SVG and distal LAD and 50% stenosis in the proximal SVG and patent PAREKH to LAD. In this regard, he is prescribed Ranexa 500 mg twice a day and his Coreg dose has been increased. Blood pressure improved. The patient does have a history of hyperlipidemia and history of not tolerant for statins including Lipitor, Crestor, as well as Zetia, which causes severe nausea and vomiting. In this regard, he will be started with Repatha. The prescription will be sent from Dr. Montes' office to his pharmacy. With these interventions, the patient is improved enough to be going home today. DISCHARGE INSTRUCTIONS: Activity as tolerated. Healthy heart diet. Follow up with primary care physician in one week. Follow up with Dr. Montes' group in 1 to 2 weeks. Discharge time took over 30 minutes. Job ID: [id number] [facility]
== END 2019-08-16 10:55 | disposition home or self-care (01) ==
LOC: ERS 00:47 → 2NO 03:31
PROVIDERS: ADMIT Internal Medicine; ATTEND Internal Medicine
PROC: 4A023N7 Measurement of Cardiac Sampling and Pressure, Left Heart, Percutaneous Approach (ICD-10-PCS; principal; 2019-08-15)
PROC: B2111ZZ Fluoroscopy of Multiple Coronary Arteries using Low Osmolar Contrast (ICD-10-PCS; 2019-08-15)
PROC: B2131ZZ Fluoroscopy of Multiple Coronary Artery Bypass Grafts using Low Osmolar Contrast (ICD-10-PCS; 2019-08-15)
PROC: B2181ZZ Fluoroscopy of Left Internal Mammary Bypass Graft using Low Osmolar Contrast (ICD-10-PCS; 2019-08-15)
DX: I21.4 Non-ST elevation (NSTEMI) myocardial infarction (principal); I25.810 Atherosclerosis of coronary artery bypass graft(s) without angina pectoris; I25.10 Atherosclerotic heart disease of native coronary artery without angina pectoris; I16.0 Hypertensive urgency; I10 Essential (primary) hypertension; E78.5 Hyperlipidemia, unspecified; E11.9 Type 2 diabetes mellitus without complications; I44.7 Left bundle-branch block, unspecified; F41.9 Anxiety disorder, unspecified; I25.2 Old myocardial infarction; Z79.02 Long term (current) use of antithrombotics/antiplatelets; Z79.4 Long term (current) use of insulin; Z79.82 Long term (current) use of aspirin; Z79.899 Other long term (current) drug therapy; Z95.1 Presence of aortocoronary bypass graft; Z95.5 Presence of coronary angioplasty implant and graft
CPT/HCPCS: 71045; 80061; 82553; 82565; 82962 ×2; 83735; 83880; 84484 ×2; 85014; 85018; 85049; 85610; 85730; 93005; 93306; 93459; 93567; 93798; 94760 ×2; 96372; 97139; 99285; C1769; G0378 ×3; 36415; 36416; 80053; 84443; 85025; 99152; 99153; J1644; J1650; J2250; Q9967

== ENCOUNTER 2020-04-25 20:05 | Observation (INO) | payer MEDICARE ==
[2020-04-25 20:40] LABS: #Eosinphils 0.1 thou/uL (0.0-0.7); #Lymphocytes 2.3 thou/uL (1.20-3.40); #Monocytes 0.4 thou/uL (0.11-0.59); #Neutrophils 3.8 thou/uL (1.40-6.50); %Basophils 0.5 % (0.0-1.0); %Eosinophils 1.8 % (0.0-10.0); %Lymphocytes 35.2 % (21.0-51.0); %Monocytes 5.2 % (0.0-10.0); %Neutrophils 57.3 % (42.0-75.0); Hemoglobin 15.1 g/dL (14.0-18.0); Mean Corpuscular HGB CONC 33.1 g/dL (32.0-36.0); Mean Corpuscular Volume 90.5 fL (78.0-98.0); Mean Platelet Volume 7.9 fL (7.4-10.4); Platelet Count 190 thou/uL (130-400); RBC Distribution Width 11.6 % (11.5-14.5); Red Blood Cell (RBC) Count 5.03 mill/uL (4.70-6.10); White Blood Cell (WBC) Count 6.7 thou/uL (4.8-10.8)
[2020-04-25 21:01] LABS: ALT (SGPT) 15 U/L (8-55); AST (SGOT) 16 U/L (5-34); Albumin 4.1 g/dL (3.4-4.8); Alkaline Phosphatase 67 U/L (40-110); Anion Gap 12 mmol/L (10-20); BUN (Urea Nitrogen) 21 mg/dL (8.4-25.7); Bilirubin, Total 0.3 mg/dL (0.2-1.2); CK (CPK) 91 U/L (30-200); Calc. Creatinine Clearance 0 mL/min (70-130); Calcium 8.8 mg/dL (7.8-10.44); Carbon Dioxide 22 mmol/L (23-31); Chloride 108 mmol/L (98-107); Globulin 3.1 g/dL (2.4-3.5); Glucose 174 mg/dL (83-110); Lipase 38 U/L (8-78); Potassium 4.2 mmol/L (3.5-5.1); Protein, Total 7.2 g/dL (5.8-8.1); Sodium 138 mmol/L (136-145)
--- NOTE | 2020-04-25 21:02 | RAD ---
EXAM: CHEST ONE VIEW: 04/25/20 HISTORY: Chest pain. COMPARISON: 08/15/19. FINDINGS: Heart size is within normal limits. The lungs are clear of acute process. Postop midline sternotomy. IMPRESSION: No significant acute intrathoracic disease. Stable from prior study. POS: RRE
[2020-04-25 21:23] LABS: CKMB 1.8 ng/mL (0-6.6)
[2020-04-25] MEDS ORDERED: Enoxaparin Sodium 100 MG/ML SYRINGE ONE (23:01)
[2020-04-25] MEDS ORDERED: Acetaminophen 650 MG Suppository PR PRN (23:27)
[2020-04-25] MEDS ORDERED: Acetaminophen 325 MG TAB PO PRN (23:27)
[2020-04-25] MEDS ORDERED: Nitroglycerin 0.4 MG TAB (25 Tab Bottle) SL PRN (23:30)
[2020-04-25] MEDS ORDERED: Sodium Chloride 0.9% 1,000 ML IV SCH (23:30)
[2020-04-25] MEDS ORDERED: Dextrose 50% Abboject 50 ML SYRINGE SLOW IVP PRN (23:38)
[2020-04-25] MEDS ORDERED: HumaLOG 300 UNITS/3 ML VIAL SC PRN ×2 (23:38)
[2020-04-25] MEDS ORDERED: Dextrose 5% in Water 1,000 ML IV PRN (23:38)
--- NOTE | 2020-04-25 23:46 | PDOC.HHP ---
Hospitalist HPI Chest pain History of Present Illness: Patient presents to the ED with complaints of chest pain and concern over reta moore BP since yesterday. States he was sitting down when he experienced discomfort on the left side of his rib cage and left upper arm. He states it was a 1/10 in severity and felt different from pain he experienced in the past with his previous NV, however became concerned over how elevated his BP was (190s systolic). He took an extra dose of his BP medication, does not know which one, but states it didnt help. He took 4 aspirin and his pain resolved. It has not recurred since. He was admitted in 07/2019 with NSTEMI and had a heart cath done with 100% occluded SVG-distal LAD and 50% stenosis in prox SVG-RCA, patent SVG-OM, patent PAREKH-LAD, subtotal LAD with diffuse disease <2.0 mm vessel. Patient was started on Ranexa 500 mg BID. He was also started on Repatha and states his lipids improved since then. His BP is normally controlled in the 120s to 130s systolic. ED Course: 12 lead EKG: Heart rate 68, normal sinus rhythm with premature atrial complexes, left axis deviation, left bundle branch block pattern, no acute is chemic changes, no significant change from July 2019. CXR was negative. No Aspirin given since he took some at home. Initial troponin was elevated at 0.126, therefore he was given full dose Lovenox (1mg/kg). Allergies/Adverse Reactions: Allergy/AdvReac Type Severity Reaction Status Date / Time No Known Allergies Allergy Verified 06/16/19 11:36 Home Medications: Medication Instructions Recorded Confirmed Type Aspirin Chewable [Aspirin Chewable 81 mg PO DAILY tab 08/28/16 08/15/19 Rx Tablet] Clopidogrel Bisulfate [Clopidogrel] 75 mg PO DAILY 06/12/17 08/15/19 History Glimepiride 4 mg PO BID-WM 06/12/17 08/15/19 History Lisinopril [Zestril] 10 mg PO DAILY #30 tab 02/22/18 08/15/19 Rx Insulin Glargine,Hum.Rec.Anlog 25 units SQ QAM 08/15/19 08/15/19 History [Alfreda Tracy] Carvedilol [Coreg] 12.5 mg PO BID 30 Days #60 tab 08/16/19 Rx Ranolazine [Ranexa] 500 mg PO BID 30 Days #60 tab 08/16/19 Rx Past History: PMHx: CAD, HTN, Hyperlipidemia, Previous NV, type 2 DM PSHx: CABG x 3 in 2001, CABG x 4 in 2009, Cardiac stent in 2017, tonsillectomy. FHx: Positive for CAD Social: Patient is retired and . He is fully independent at baseline. No tobacco use, alcohol consumption and no drug use. Hospitalist HPI ROS Constitutional: denies: fever, chills, sweats, weakness, malaise, other Respiratory: denies: cough, dry, shortness of breath, hemoptysis, SOB with excertion, pleuritic pain, sputum, wheezing, other Cardiovascular: reports: chest pain (resolved). denies: palpitations, orthopnea, paroxysmal noc. dyspnea, edema, light headedness, other Gastrointestinal: denies: nausea, vomiting, abdominal pain, diarrhea, constipa tion, melena, hematochezia, other Genitourinary: denies: dysuria, frequency, incontinence, hematuria, retention, other Musculoskeletal: denies: neck pain, shoulder pain, arm pain, back pain, hand pain, leg pain, foot pain, other Skin: denies: rash, lesions, shyam, bruising, other All other systems reviewed; all pertinent +/- noted in HPI/Subj Hospitalist Exam General Appearance: NAD (BP: 145/93, MAP: 110, Pulse: 60, Resp: 19, Temp: 98.0 (Oral), Pain: 0, O2 sat: 97 on (Room Air),) Eye: PERRL, anicteric sclera ENT: normocephalic atraumatic, no oropharyngeal lesions Neck: supple, no lymphadenopathy Heart: RRR, normal peripheral pulses Respiratory: CTAB, no wheezes, no rales, no ronchi, normal chest expansion Respiratory - other findings: no chest wall tenderness/pain with palpation Gastrointestinal: soft, non-tender, non-distended, normal bowel sounds, no guarding, no rigidity Extremities: no edema Skin: normal turgor, no lesions, no rashes Neurological: cranial nerve grossly intact, normal sensation to touch, no weakness Musculoskeletal: normal tone, normal strength, no muscle wasting Musculoskeletal - other findings: No LUE discomfort or tenderness, normal ROM Psychiatric: normal affect, normal behavior, A&O x 3 Hospitalist Results Result Diagrams: 04/25/20 20:04/25/20 20: Lab results: Laboratory Last Values WBC 6.7 thou/uL (4.8-10.8) 04/25/20 20: RBC 5.03 mill/uL (4.70-6.10) 04/25/20 20: Hgb 15.1 g/dL (14.0-18.0) 04/25/20 20: Hct 45.6 % (42.0-52.0) 04/25/20: MCV 90.5 fL (78.0-98.0) 04/25/20: MCH 30.0 pg (27.0-31.0) 04/25/20: MCHC 33.1 g/dL (32.0-36.0) 04/25/20: RDW 11.6 % (11.5-14.5) 04/25/20: Plt Count 190 thou/uL (130-400) 04/25/20 20: MPV 7.9 fL (7.4-10.4) 04/25/20: Neutrophils % 57.3 % (42.0-75.0) 04/25/20 20: Lymphocytes % 35.2 % (21.0-51.0) 04/25/20: Monocytes % 5.2 % (0.0-10.0) 04/25/20: Eosinophils % 1.8 % (0.0-10.0) 04/25/20: Basophils % 0.5 % (0.0-1.0) 04/25/20: Neutrophils # 3.8 thou/uL (1.40-6.50) 04/25/20: Lymphocytes # 2.3 thou/uL (1.20-3.40) 04/25/20: Monocytes # 0.4 thou/uL (0.11-0.59) 04/25/20: Eosinophils # 0.1 thou/uL (0.0-0.7) 01/29/21 20:27 Basophils # 0.0 thou/uL (0.0-0.2) 04/25/20 20:27 Sodium 138 mmol/L (136-145) 04/25/20 20: Potassium 4.2 mmol/L (3.5-5.1) 04/25/20 20: Chloride 108 mmol/L (98-107) H 04/25/20 20:27 Carbon Dioxide 22 mmol/L (23-31) L 04/25/20 20: Anion Gap 12 mmol/L (10-20) 04/25/20 20:27 BUN 21 mg/dL (8.4-25.7) 04/25/20 20: Creatinine 1.33 mg/dL (0.7-1.3) H 04/25/20 20:27 Estimated GFR (MDRD) 53 04/25/20 20: Glucose 174 mg/dL (83-110) H 04/25/20 20: Calcium 8.8 mg/dL (7.8-10.44) 04/25/20 20: Total Bilirubin 0.3 mg/dL (0.2-1.2) 04/25/20 20: AST 16 U/L (5-34) 04/25/20 20: ALT 15 U/L (8-55) 04/25/20 20: Alkaline Phosphatase 67 U/L (40-110) 04/25/20 20: Creatine Kinase 91 U/L (30-200) 04/25/20 20: CK-MB (CK-2) 1.8 ng/mL (0-6.6) 04/25/20 20: Troponin I 0.126 ng/mL (< 0.028) H 04/25/20 20:27 Serum Total Protein 7.2 g/dL (5.8-8.1) 04/25/20 20: Albumin 4.1 g/dL (3.4-4.8) 04/25/20 20: Globulin 3.1 g/dL (2.4-3.5) 04/25/20 20: Albumin/Globulin Ratio 1.3 g/dL (1.2-2.2) 04/25/20: Lipase 38 U/L (8-78) 04/25/20 20:27 Chest x-ray Status: report reviewed by me Hospitalist H&P A/P (1) NSTEMI (non-ST elevated myocardial infarction) Code(s): I21.4 - NON-ST ELEVATION (NSTEMI) MYOCARDIAL INFARCTION Status: Acute (2) Hypertensive urgency Code(s): I16.0 - HYPERTENSIVE URGENCY Status: Acute (3) Chronic renal insufficiency Code(s): N18.9 - CHRONIC KIDNEY DISEASE, UNSPECIFIED Status: Chronic (4) HTN (hypertension) Code(s): I10 - ESSENTIAL (PRIMARY) HYPERTENSION Status: Chronic (5) DMII (diabetes mellitus, type 2) Status: Chronic (6) HLD (hyperlipidemia) Code(s): E78.5 - HYPERLIPIDEMIA, UNSPECIFIED Status: Chronic Plan: NSTEMI Continue to trend troponins Given Lovenox in ED Consult placed to Dr. Montes Check Lipid panel with AM labs Continue Aspirin 325 mg daily NPO after midnight Hypertensive Urgency BP improved Monitor BP Resume home medications once verified Chronic renal insufficiency Monitor renal function Resume home meds as appropriate Avoid nephrotoxic meds Gentle hydration Type 2 DM Monitor glucose ISS initiated Hyperlipidemia Resume statin once dose verified DVT Prophylaxis with mechanical SCDs, given full dose Lovenox in ED. CODE STATUS FULL Case discussed with Dr. Jones who agrees with plan as above.
[2020-04-26 01:05] VITALS: BMI 27.1
[2020-04-26 01:32] LABS: Troponin I 0.094 ng/mL (< 0.028)
[2020-04-26 03:17] LABS: #Basophils 0.1 thou/uL (0.0-0.2); #Eosinphils 0.1 thou/uL (0.0-0.7); #Lymphocytes 2.9 thou/uL (1.20-3.40); #Monocytes 0.5 thou/uL (0.11-0.59); #Neutrophils 3.8 thou/uL (1.40-6.50); %Basophils 0.9 % (0.0-1.0); %Eosinophils 1.3 % (0.0-10.0); %Monocytes 6.5 % (0.0-10.0); %Neutrophils 51.4 % (42.0-75.0); Hemoglobin 14.4 g/dL (14.0-18.0); Mean Corpuscular HGB CONC 33.5 g/dL (32.0-36.0); Mean Corpuscular Hemoglobin 30.5 pg (27.0-31.0); Mean Corpuscular Volume 90.9 fL (78.0-98.0); Platelet Count 181 thou/uL (130-400); RBC Distribution Width 11.6 % (11.5-14.5); Red Blood Cell (RBC) Count 4.71 mill/uL (4.70-6.10); White Blood Cell (WBC) Count 7.3 thou/uL (4.8-10.8)
[2020-04-26 03:31] LABS: Troponin I 0.098 ng/mL (< 0.028)
[2020-04-26 03:35] LABS: Anion Gap 13 mmol/L (10-20); BUN (Urea Nitrogen) 18 mg/dL (8.4-25.7); Calc. Creatinine Clearance 82 mL/min (70-130); Calcium 8.9 mg/dL (7.8-10.44); Carbon Dioxide 21 mmol/L (23-31); Cardiac Risk 1.9 (Less than 4.5); Chloride 108 mmol/L (98-107); Cholesterol 89 mg/dl (< 200 Desired); Glucose 145 mg/dL (83-110); HDL Cholesterol 47 mg/dL (>60 Neg Risk); LDL Cholesterol, Calculated 18 mg/dL; Sodium 138 mmol/L (136-145); Triglycerides 120 mg/dL (Less than 150)
[2020-04-26] MEDS ORDERED: FLU VACC QS2020-21(65YR UP)/PF 240 MCG/0.7 ML SYRINGE IM ONE (09:00)
[2020-04-26] MEDS ORDERED: Aspirin 325 mg Enteric Coated Tablet PO SCH (09:00)
--- NOTE | 2020-04-26 10:33 | PDOC.HOSPP ---
- Subjective Encounter Date: 04/26/20 Encounter Time: 10:32 Subjective: 74 y/o male sitting up in bed, alert and oriented. Denies any overnight events. Denies any chest pain or shortness of breath at this time. - Objective Vital Signs & Weight: Vital Signs (12 hours) Temp Pulse Resp BP BP Pulse Ox 04/26/20 07:32 97.7 F 64 17 130/75 95 04/26/20 03:45 97.5 F L 72 19 120/77 95 04/25/20 23:30 98 04/25/20 23:27 97.6 F 58 L 18 147/83 H 98 Weight Weight 206 lb 2 oz I&O: 04/25/20 04/26/20 04/27/20 06:59 06:59 06:59 Intake Total 550 Output Total 400 Balance 150 Result Diagrams: 04/26/20 03:05 04/26/20 03:05 Additional Labs: Accuchecks 04/26/20 05:34 POC Glucose 141 H Hospitalist ROS - Review of Systems Constitutional: denies: fever, chills, sweats, weakness, malaise, other Eyes: denies: pain, vision change, conjunctivae inflammation, eyelid inflammation, redness, other ENT: denies: ear pain, ear discharge, nose pain, nose discharge, nose congestion, mouth pain, mouth swelling, throat pain, throat swelling, other Respiratory: denies: cough, dry, shortness of breath, hemoptysis, SOB with excertion, pleuritic pain, sputum, wheezing, other Cardiovascular: denies: chest pain, palpitations, orthopnea, paroxysmal noc. dyspnea, edema, light headedness, other Gastrointestinal: denies: nausea, vomiting, abdominal pain, diarrhea, const ipation, melena, hematochezia, other Genitourinary: denies: dysuria, frequency, incontinence, hematuria, retention, other Musculoskeletal: denies: neck pain, shoulder pain, arm pain, back pain, hand pain, leg pain, foot pain, other Skin: denies: rash, lesions, shyam, bruising, other Neurological: denies: weakness, numbness, incoordination, change in speech, confusion, seizures, other All other systems reviewed; all pertinent +/- noted in HPI/Subj - Medication Medications: Active Medications Generic Name Dose Route Start Last Admin Trade Name Freq PRN Reason Stop Dose Admin Aspirin 325 mg 04/26/20 09:00 04/26/20 08:51 Aspirin 325 Mg Enteric Coated Tablet PO 325 mg DAILY MACHO Administration Sodium Chloride 1,000 mls @ 45 mls/hr 04/25/20 23:30 04/26/20 00:47 Normal Saline 0.9% IV 1,000 mls .[id number] MACHO Administration Hospitalist Exam Vitals: Vital Signs (12 hours) Temp Pulse Resp BP BP Pulse Ox 04/26/20 07:32 97.7 F 64 17 130/75 95 04/26/20 03:45 97.5 F L 72 19 120/77 95 04/25/20 23:30 98 04/25/20 23:27 97.6 F 58 L 18 147/83 H 98 Weight Weight 206 lb 2 oz General Appearance: NAD, awake alert Eye: PERRL ENT: normocephalic atraumatic, no oropharyngeal lesions, moist mucosa Neck: supple, symmetric, no JVD, no thyromegaly, no lymphadenopathy, no carotid bruit Heart: RRR, no murmur, no gallops, no rubs, normal peripheral pulses Respiratory: CTAB, no wheezes, no rales, no ronchi, normal chest expansion, no tachypnea, normal percussion Gastrointestinal: soft, non-tender, non-distended, normal bowel sounds, no palpable masses, no hepatomegaly, no splenomegaly, no bruit Extremities: no cyanosis, no clubbing, no edema Skin: normal turgor, no lesions, no rashes Neurological: cranial nerve grossly intact, normal sensation to touch, no weakness, no focal deficits, no new deficit Musculoskeletal: normal tone, normal strength, no muscle wasting Psychiatric: normal affect, normal behavior, A&O x 3 Hosp A/P (1) NSTEMI (non-ST elevated myocardial infarction) Code(s): I21.4 - NON-ST ELEVATION (NSTEMI) MYOCARDIAL INFARCTION Status: Acute (2) Hypertensive urgency Code(s): I16.0 - HYPERTENSIVE URGENCY Status: Acute (3) Chronic renal insufficiency Code(s): N18.9 - CHRONIC KIDNEY DISEASE, UNSPECIFIED Status: Chronic (4) Hypertension Code(s): I10 - ESSENTIAL (PRIMARY) HYPERTENSION Status: Acute (5) DMII (diabetes mellitus, type 2) Status: Chronic (6) HLD (hyperlipidemia) Code(s): E78.5 - HYPERLIPIDEMIA, UNSPECIFIED Status: Chronic - Plan old records reviewed/req, DVT proph w/SCDs NSTEMI Continue to trend troponins Given Lovenox in ED Consult placed to Dr. Montes - awaiting Check Lipid panel with AM labs: Total chol normal at 89, Trig normal at 120, HDL low at 47, LDL normal at 18. Continue Aspirin 325 mg daily NPO after midnight Hypertensive Urgency BP improved Monitor BP Resume home medications once verified Chronic renal insufficiency Monitor renal function Resume home meds as appropriate Avoid nephrotoxic meds Gentle hydration Type 2 DM Monitor glucose ISS initiated Hyperlipidemia Resume statin once dose verified DVT Prophylaxis with mechanical SCDs, given full dose Lovenox in ED. CODE STATUS FULL
[2020-04-26 11:21] VITALS: BP 119/78; TEMP 98
--- NOTE | 2020-04-26 11:52 | CON ---
DATE OF CONSULTATION: 04/26/2020 REASON FOR CONSULTATION: Hypertension. PRIMARY ROOF PLUMBER: Katina Montes MD HISTORY OF PRESENT ILLNESS: Mr. Conchis Kellogg is a very pleasant 74-year-old white gentleman who comes to the hospital for high blood pressure. He had been experiencing high blood pressure for the last couple of days in the 190s and 180s over 100s. He was taking extra of his home blood pressure medication and it would not help in any way. He was having some left lower flank pain and mild left arm discomfort, so he called yesterday evening. I received the call and he voiced his atypical symptoms and the blood pressure being this high for almost 2 days now, so he was advised to go to the emergency room. He presented after taking three sublingual nitroglycerins to try to get the blood pressure a little bit better and he was still in the 180s over 110s range, so he was given IV medications and his blood pressure has been a lot better since, 110s to 120s actually. He is feeling much better. He denies any more chest discomfort. He never really did have any of the chest pain that he has had in the past when he had his multiple MIs. He tells me he knows his heart pain really well and this is nowhere near what he was having. He never had any discomfort in his chest. It was always in his left arm, which was minimal and mostly on his left lower flank. He feels pretty much back to normal now. He was admitted to trend his troponins as they were in the indeterminate range. He does have a history of coronary artery disease with previous bypass and he has severe diffuse disease on the distal beds of his arteries. PAST MEDICAL HISTORY: 1. Coronary artery disease, status post CABG as above. 2. Hypertension. 3. Hyperlipidemia. 4. Type 2 diabetes. 5. History of multiple MIs in the past. PAST SURGICAL HISTORY: 1. CABG x3 in 2001. 2. CABG x4 in 2009. 3. Stenting in 2017. 4. Tonsillectomy. FAMILY HISTORY: Positive for early coronary artery disease. SOCIAL HISTORY: No alcohol, tobacco, or drugs. OUTPATIENT MEDICATIONS: Include, 1. Aspirin 81 a day. 2. Plavix 75 mg a day. 3. Glimepiride 4 mg b.i.d. 4. Lisinopril 10 mg a day. 5. Insulin Toujeo 25 units a day. 6. Carvedilol 12.5 b.i.d. 7. Ranolazine 500 mg b.i.d. ALLERGIES: NO KNOWN DRUG ALLERGIES. REVIEW OF SYSTEMS: A 12-point review of systems was done and was all negative unless stated in the history of present illness. PHYSICAL EXAMINATION: VITAL SIGNS: Temperature 98.0, pulse 63, respiratory rate 18, saturating 98% on room air, blood pressure 119/78. GENERAL: Awake, alert, and oriented x3. No distress. HEENT: Normocephalic, atraumatic. NECK: Supple. LUNGS: Clear. CARDIOVASCULAR: S1 and S2. No S3 or S4. No murmurs. No rubs. ABDOMEN: Soft. Positive bowel sounds. EXTREMITIES: No edema. SKIN: Warm and dry. LABORATORY DATA: Laboratory work was reviewed. White count of 7, hemoglobin of 14, hematocrit 42, and platelet count of 181. Chemistry with sodium of 138, potassium is 4.0, chloride of 108, carbon dioxide of 21, anion gap of 13, BUN of 18, creatinine 1.08, GFR of 67, glucose is 145, calcium is 8.9. Troponin was 0.12, 0.09, and then 0.09 with normal CK-MB. Triglycerides of 120, cholesterol total 89, LDL of 18, HDL of 47. Lipase was 38. EKG was reviewed. Chest x-ray was reviewed. ASSESSMENT: 1. Hypertensive emergency. 2. History of coronary artery disease, but no acute coronary syndrome. 3. History of diabetes. PLAN: 1. His blood pressure is back to normal. His symptoms are also gone once the blood pressure was controlled. 2. His troponin has trended out in the indeterminate range, which is pretty much where he always is. This is his baseline. 3. He should be able to go home on current regimen. He is going to call the office with Dr. Montes and we will try to get an appointment for an echocardiogram soon, hopefully this week. He should be able to be discharged home on current regimen. Thank you for letting us to participate in the care of your patient. We will follow. Job ID: [id number]
[2020-04-26 14:43] LABS: SARS-CoV-2 PCR by NAA Not Detected (NotDetected)
--- NOTE | 2020-04-29 11:51 | PDOC.DS.DS ---
Provider Date of Admission: 04/25/20 22:33 Date of Discharge: 04/26/20 Admitting Provider: Edy Jones MD Consultations: None Primary Care Physician: Unknown Course Hospital Course: Patient presents to the ED with complaints of chest pain and concern over elevated BP since yesterday. States he was sitting down when he experienced discomfort on the left side of his rib cage and left upper arm. He states it was a 1/10 in severity and felt different from pain he experienced in the past with his previous LA, however became concerned over how elevated his BP was (190s systolic). He took an extra dose of his BP medication, does not know which one, but states it didnt help. He took 4 aspirin and his pain resolved. It has not recurred since. He was admitted in 07/2019 with NSTEMI and had a heart cath done with 100% occluded SVG-distal LAD and 50% stenosis in prox SVG-RCA, patent SVG-OM, patent PAREKH-LAD, subtotal LAD with diffuse disease <2.0 mm vessel. Patient was started on Ranexa 500 mg BID. He was also started on Repatha and states his lipids improved since then. His BP is normally controlled in the 120s to 130s systolic. Pertinent Studies: Normal chest xray. Procedures: NONE Resuscitation Status: 04/25/20 23:27 Resuscitation Status Routine Co-Sign Provider: Resuscitation Status: FULL: Full Resuscitation Lab Results: 04/26/20 03:05 04/26/20 03:05 Vitals: Weight Weight 206 lb 2 oz Physical Exam: The patient was seen and examined on the day of discharge. General Appearance: NAD, awake alert Eye: PERRL, anicteric sclera ENT: normocephalic atraumatic, no oropharyngeal lesions, moist mucosa Neck: supple, symmetric, no JVD Respiratory: CTAB, no wheezes, no rales, no ronchi, normal chest expansion Cardiovascular: RRR, no murmur, no gallops, no rubs, normal peripheral pulses Gastrointestinal: soft, non-tender, non-distended, normal bowel sounds, no palpable masses Extremities: no cyanosis, no clubbing, no edema Skin: normal turgor, no lesions Neurological: cranial nerve grossly intact, normal sensation to touch Musculoskeletal: normal tone, normal strength PSYCH: normal affect, normal behavior, A&O x 3 Problem Assessment: Patient states he is comfortable with discharge. Discussed f/u plan and patient agreed. Plan of Treatment: Discharge home. Patient will f/u with cardiology and PCP in the next 7 days. Health Concerns: No concerns at time of DC. (1) NSTEMI (non-ST elevated myocardial infarction) Code(s): I21.4 - NON-ST ELEVATION (NSTEMI) MYOCARDIAL INFARCTION Status: Acute (2) Hypertensive urgency Code(s): I16.0 - HYPERTENSIVE URGENCY Status: Acute (3) Chronic renal insufficiency Code(s): N18.9 - CHRONIC KIDNEY DISEASE, UNSPECIFIED Status: Chronic (4) Hypertension Code(s): I10 - ESSENTIAL (PRIMARY) HYPERTENSION Status: Acute (5) DMII (diabetes mellitus, type 2) Status: Chronic (6) HLD (hyperlipidemia) Code(s): E78.5 - HYPERLIPIDEMIA, UNSPECIFIED Status: Chronic Time Spent in discharge related activities (mins): 15 Plan Home Medications: Medication Instructions Recorded Confirmed Type Aspirin Chewable [Aspirin Chewable 81 mg PO DAILY tab 08/28/16 04/26/20 Rx Tablet] Clopidogrel Bisulfate [Clopidogrel] 75 mg PO DAILY 06/12/17 04/26/20 History Glimepiride 4 mg PO BID-WM 06/12/17 04/26/20 History Lisinopril [Zestril] 10 mg PO DAILY #30 tab 02/22/18 04/26/20 Rx Insulin Glargine,Hum.Rec.Anlog 25 units SQ QAM 08/15/19 04/26/20 History [Tokylie Tracy] Carvedilol [Coreg] 12.5 mg PO BID 30 Days #60 tab 08/16/19 04/26/20 Rx Ranolazine [Ranexa] 500 mg PO BID 30 Days #60 tab 08/16/19 04/26/20 Rx Allergies: No Known Allergies Allergy (Verified 06/16/19 11:36) Activity:: Activity as Tolerated Nourishment:: Heart Healthy Diet Therapies:: Not Applicable Equipment/Supplies:: Not Applicable IV Therapy:: Not Applicable Referrals: Therese Montes MD [Active] - 7 Days (Please call the office to schedule and ECHO within 7 days. ) Joe Gloria MD [Active] - 7 Days (Please call the office to schedule an appointment within 7 days.) Disposition: HOME Quality CORE MEASURES:: AMI Did you prescribe antithrombotic therapy?: Yes Did you prescribe anticoagulant for A Fib/Flutter?: Yes Did you prescribe a statin medication?: No Specify reason for no DC statin medication: Treatment not indicated
== END 2020-04-26 14:50 | disposition home or self-care (01) ==
LOC: ERS 20:05 → 2NO 22:33
PROVIDERS: ADMIT Internal Medicine; ATTEND Internal Medicine
DX: I21.4 Non-ST elevation (NSTEMI) myocardial infarction (principal); I16.0 Hypertensive urgency; I12.9 Hypertensive chronic kidney disease with stage 1 through stage 4 chronic kidney disease, or unspecified chronic kidney disease; E11.22 Type 2 diabetes mellitus with diabetic chronic kidney disease; N18.9 Chronic kidney disease, unspecified; E78.5 Hyperlipidemia, unspecified; I25.10 Atherosclerotic heart disease of native coronary artery without angina pectoris; I25.2 Old myocardial infarction; Z79.02 Long term (current) use of antithrombotics/antiplatelets; Z79.4 Long term (current) use of insulin; Z79.82 Long term (current) use of aspirin; Z79.899 Other long term (current) drug therapy; Z95.1 Presence of aortocoronary bypass graft; Z95.5 Presence of coronary angioplasty implant and graft; Z20.822 Contact with and (suspected) exposure to COVID-19
CPT/HCPCS: 71045; 80048; 80053; 80061; 82550; 82553; 82962; 83690; 84484 ×3; 85025 ×2; 93005; 94760 ×2; 96372; 99285; U0003; U0005; 36415; 36416; 87635; G0378; J1650

== ENCOUNTER 2021-09-10 19:06 | Inpatient (IN) | payer MEDICARE ==
[~2021-09-10 19:06] MED LIST: ISOVUE-370 76%-LOCM 1 ML ONE
[2021-09-10 19:23] LABS: Bacteria/HPF 3+ HPF (None Seen); Bilirubin Negative (Negative); Blood, Urine 3+ (Negative); Clarity Turbid (Clear); Glucose, Urine (Dipstick) Greater than 1000 mg/dL (Negative); Ketone, Urine 10 mg/dL (Negative); Leukocyte 250 Leu/uL (Negative); Nitrite Negative (Negative); Protein, Urine (Dipstick) 50 mg/dL (Neg-Trace); RBC/HPF 21-50 HPF (0-3); Specific Gravity, Urine 1.016 (1.002-1.036); Squamous Epithelial 0-3 HPF (0-3); Urobilinogen Normal mg/dL (Less than 2); pH, Urine 5.5 (5.0-9.0)
[2021-09-10 19:31] LABS: #Lymphocytes 0.8 thou/uL (1.20-3.40); #Monocytes 0.5 thou/uL (0.11-0.59); #Neutrophils 12.8 thou/uL (1.40-6.50); %Basophils 0.1 % (0.0-1.0); %Eosinophils 0.1 % (0.0-10.0); %Lymphocytes 5.4 % (21.0-51.0); %Monocytes 3.7 % (0.0-10.0); %Neutrophils 90.7 % (42.0-75.0); Hemoglobin 14.7 g/dL (14.0-18.0); Mean Corpuscular HGB CONC 32.9 g/dL (32.0-36.0); Mean Corpuscular Hemoglobin 31.3 pg (27.0-31.0); Mean Corpuscular Volume 95.2 fL (78.0-98.0); Mean Platelet Volume 7.4 fL (7.4-10.4); Platelet Count 180 thou/uL (130-400); RBC Distribution Width 11.8 % (11.5-14.5); White Blood Cell (WBC) Count 14.1 thou/uL (4.8-10.8)
[2021-09-10] MEDS ORDERED: Morphine 4 MG/ML VIAL ONE (19:42)
[2021-09-10 19:54] LABS: ALT (SGPT) 11 U/L (8-55); AST (SGOT) 19 U/L (5-34); Albumin 3.9 g/dL (3.4-4.8); Alkaline Phosphatase 59 U/L (40-110); Anion Gap 17 mmol/L (10-20); BUN (Urea Nitrogen) 30 mg/dL (8.4-25.7); Calc. Creatinine Clearance 0 mL/min (70-130); Calcium 9.3 mg/dL (7.8-10.44); Carbon Dioxide 19 mmol/L (23-31); Chloride 102 mmol/L (98-107); Globulin 3.4 g/dL (2.4-3.5); Glucose 319 mg/dL (83-110); Potassium 4.1 mmol/L (3.5-5.1); Protein, Total 7.3 g/dL (5.8-8.1); Sodium 134 mmol/L (136-145)
[2021-09-10] MEDS ORDERED: Cefepime 2 GM VIAL ONE (21:32)
[2021-09-10] MEDS ORDERED: VANCOMYCIN 2 GRAM/500 ML BAG 2 GM in Premix Bag 1 BAG IVPB SCH (23:45)
[2021-09-11] MEDS ORDERED: Morphine 4 MG/ML VIAL ONE (00:20)
[2021-09-11] MEDS ORDERED: Acetaminophen 500 MG TAB ONE (00:20)
[2021-09-11] MEDS ORDERED: Iopamidol 15 ML ONE (00:21)
[2021-09-11] MEDS ORDERED: Fentanyl 100 MCG/2 ML VIAL ONE (00:22)
[2021-09-11] MEDS ORDERED: PROPOFOL 200 MG/20 ML VIAL ONE (01:02)
[2021-09-11] MEDS ORDERED: Succinylcholine 200 MG/10 ml SYRINGE FS ONE (01:02)
[2021-09-11] MEDS ORDERED: PHENYLEPHRINE-NS 100 MCG/ML 10 ML SYRINGE ONE (01:02)
[2021-09-11] MEDS ORDERED: Ondansetron PF 4 MG/2 ML Vial ONE (01:02)
[2021-09-11] MEDS ORDERED: Esmolol 100 MG/10 ML VIAL ONE (01:02)
[2021-09-11] MEDS ORDERED: Glycopyrrolate 0.2 MG/ML 5 ML SYRINGE ONE (01:02)
[2021-09-11] MEDS ORDERED: Rocuronium Bromide 10 MG/ML (10ML VIAL) ONE (01:02)
[2021-09-11] MEDS ORDERED: HYDROmorphone 2 MG/ML VIAL ONE (01:26)
[2021-09-11] MEDS ORDERED: B & O ONE (01:35)
[2021-09-11] MEDS ORDERED: HYDROmorphone 2 MG/ML VIAL SLOW IVP PRN (01:38)
[2021-09-11] MEDS ORDERED: Promethazine HCl 25 MG/ML VIAL IM PRN (01:38)
[2021-09-11] MEDS ORDERED: Ondansetron HCl/PF 4 MG/2 ML Vial IVP PRN (01:38)
[2021-09-11] MEDS ORDERED: Promethazine HCl 25 MG/ML VIAL IVPB PRN (01:38)
[2021-09-11] MEDS ORDERED: Meperidine HCl/PF 25 MG/ML VIAL SLOW IVP PRN (01:38)
[2021-09-11] MEDS ORDERED: SUGAMMADEX SODIUM 200 MG/2 ML VIAL ONE (02:11)
[2021-09-11] MEDS ORDERED: Insulin Regular 300 UNITS/3 ML VIAL SC SCH (02:30)
[2021-09-11] MEDS ORDERED: HumaLOG 300 UNITS/3 ML VIAL SC PRN (03:37)
[2021-09-11] MEDS ORDERED: Dextrose 5% in Water 1,000 ML IV PRN (03:37)
[2021-09-11] MEDS ORDERED: Ondansetron PF 4 MG/2 ML Vial IVP PRN (03:37)
[2021-09-11] MEDS ORDERED: Dextrose 50% Abboject 50 ML SYRINGE SLOW IVP PRN (03:37)
[2021-09-11] MEDS ORDERED: Ondansetron ODT 4 MG TAB PO PRN (03:37)
[2021-09-11] MEDS: Sodium Chloride 0.9% 1,000 ML IV SCH ×3 (04:03→20:45)
[2021-09-11] MEDS: cefTRIAXone\\ROCEPHIN 2 GM in Sodium Chloride 0.9% 100 ML IVPB SCH (04:08)
[2021-09-11 04:11] VITALS: BMI 28.9
[2021-09-11] MEDS ORDERED: Fluconazole In NaCl,Iso-Osm 200 MG, Admixture Fee 1 EACH in Premix Bag 1 BAG IVPB SCH ×2 (05:00)
[2021-09-11] MEDS: HumaLOG 300 UNITS/3 ML VIAL SC PRN ×3 (06:04→16:37)
[2021-09-11 07:59] LABS: Bilirubin Negative (Negative); Blood, Urine Large (Negative); Glucose, Urine (Dipstick) 500 mg/dL (Negative); Ketone, Urine 15 mg/dL (Negative); Leukocyte Negative (Negative); Nitrite Negative (Negative); Protein, Urine (Dipstick) 100 mg/dL (Neg-Trace); Urobilinogen 0.2 mg/dL (Less than 2); pH, Urine 5.5 (5.0-9.0)
[2021-09-11 08:02] LABS: Clarity Hazy (Clear)
[2021-09-11 08:30] LABS: Bacteria/HPF Rare-Few HPF (None Seen); Squamous Epithelial 0-3 HPF (0-3)
[2021-09-11] MEDS ORDERED: Vancomycin HCl 1 GM in Sodium Chloride 0.9% 250 ML 300 ML IVPB SCH (09:00)
[2021-09-11] MEDS ORDERED: Fluconazole In NaCl,Iso-Osm 200 MG in Premix Bag 1 BAG IVPB SCH (09:00)
[2021-09-11] MEDS: Acetaminophen 500 MG TAB PO PRN ×2 (09:06→20:44)
[2021-09-11] MEDS: Insulin Glargine 30 UNITS/0.3 ML VIAL SC SCH (09:07)
[2021-09-11] MEDS: Famotidine 20 MG TAB PO SCH ×2 (09:07→20:45)
[2021-09-11] MEDS: Vancomycin 1.5 GRAM/300 ML BAG 1.5 GM in Premix Bag 1 BAG IVPB SCH (23:55)
[2021-09-12] MEDS: Fluconazole In NaCl,Iso-Osm 200 MG, Admixture Fee 1 EACH in Premix Bag 1 BAG IVPB SCH (05:49)
[2021-09-12] MEDS: cefTRIAXone\\ROCEPHIN 2 GM in Sodium Chloride 0.9% 100 ML IVPB SCH (05:49)
[2021-09-12] MEDS: Sodium Chloride 0.9% 1,000 ML IV SCH ×3 (05:49→19:41)
[2021-09-12 06:32] LABS: #Lymphocytes 0.8 thou/uL (1.20-3.40); #Monocytes 0.6 thou/uL (0.11-0.59); #Neutrophils 8.3 thou/uL (1.40-6.50); %Basophils 0.2 % (0.0-1.0); %Eosinophils 0.4 % (0.0-10.0); %Lymphocytes 7.9 % (21.0-51.0); %Monocytes 5.7 % (0.0-10.0); %Neutrophils 85.9 % (42.0-75.0); Hemoglobin 11.6 g/dL (14.0-18.0); Mean Corpuscular HGB CONC 32.5 g/dL (32.0-36.0); Mean Corpuscular Hemoglobin 31.4 pg (27.0-31.0); Mean Corpuscular Volume 96.4 fL (78.0-98.0); Platelet Count 118 thou/uL (130-400); RBC Distribution Width 11.8 % (11.5-14.5); Red Blood Cell (RBC) Count 3.69 mill/uL (4.70-6.10); White Blood Cell (WBC) Count 9.7 thou/uL (4.8-10.8)
[2021-09-12 06:45] LABS: ALT (SGPT) 30 U/L (8-55); AST (SGOT) 93 U/L (5-34); Albumin 2.9 g/dL (3.4-4.8); Alkaline Phosphatase 44 U/L (40-110); Anion Gap 12 mmol/L (10-20); BUN (Urea Nitrogen) 21 mg/dL (8.4-25.7); Bilirubin, Total 0.4 mg/dL (0.2-1.2); Calc. Creatinine Clearance 73 mL/min (70-130); Calcium 8.2 mg/dL (7.8-10.44); Carbon Dioxide 19 mmol/L (23-31); Chloride 110 mmol/L (98-107); Globulin 2.8 g/dL (2.4-3.5); Glucose 148 mg/dL (83-110); Protein, Total 5.7 g/dL (5.8-8.1); Sodium 137 mmol/L (136-145)
[2021-09-12] MEDS: Famotidine 20 MG TAB PO SCH ×2 (08:44→19:41)
[2021-09-12] MEDS: Insulin Glargine 30 UNITS/0.3 ML VIAL SC SCH (08:44)
[2021-09-12] MEDS: HumaLOG 300 UNITS/3 ML VIAL SC PRN ×2 (12:23→16:51)
[2021-09-12] MEDS ORDERED: Melatonin 3 MG TAB PO PRN (16:09)
[2021-09-12 23:49] LABS: Vancomycin, Trough 7.3 ug/mL
[2021-09-13] MEDS: Vancomycin 1.5 GRAM/300 ML BAG 1.5 GM in Premix Bag 1 BAG IVPB SCH ×3 (00:56→14:38)
[2021-09-13] MEDS: cefTRIAXone\\ROCEPHIN 2 GM in Sodium Chloride 0.9% 100 ML IVPB SCH (04:07)
[2021-09-13] MEDS: Sodium Chloride 0.9% 1,000 ML IV SCH ×3 (04:08→20:34)
[2021-09-13] MEDS: Fluconazole In NaCl,Iso-Osm 200 MG, Admixture Fee 1 EACH in Premix Bag 1 BAG IVPB SCH (05:49)
[2021-09-13 07:04] LABS: Anion Gap 12 mmol/L (10-20); BUN (Urea Nitrogen) 16 mg/dL (8.4-25.7); Calc. Creatinine Clearance 79 mL/min (70-130); Calcium 8.6 mg/dL (7.8-10.44); Carbon Dioxide 22 mmol/L (23-31); Chloride 108 mmol/L (98-107); Glucose 159 mg/dL (83-110); Potassium 3.8 mmol/L (3.5-5.1); Sodium 138 mmol/L (136-145)
[2021-09-13] MEDS: Famotidine 20 MG TAB PO SCH ×2 (08:22→20:31)
[2021-09-13] MEDS: Insulin Glargine 30 UNITS/0.3 ML VIAL SC SCH (08:22)
[2021-09-13] MEDS: HumaLOG 300 UNITS/3 ML VIAL SC PRN (16:54)
[2021-09-13] MEDS: Acetaminophen 500 MG TAB PO PRN (20:30)
[2021-09-14] MEDS: Vancomycin 1.5 GRAM/300 ML BAG 1.5 GM in Premix Bag 1 BAG IVPB SCH ×2 (00:41→14:11)
[2021-09-14] MEDS: Fluconazole In NaCl,Iso-Osm 200 MG, Admixture Fee 1 EACH in Premix Bag 1 BAG IVPB SCH (05:00)
[2021-09-14] MEDS: Sodium Chloride 0.9% 1,000 ML IV SCH ×2 (05:01→12:04)
[2021-09-14 06:46] LABS: Anion Gap 11 mmol/L (10-20); BUN (Urea Nitrogen) 15 mg/dL (8.4-25.7); Calc. Creatinine Clearance 79 mL/min (70-130); Calcium 8.4 mg/dL (7.8-10.44); Carbon Dioxide 24 mmol/L (23-31); Chloride 109 mmol/L (98-107); Glucose 137 mg/dL (83-110); Potassium 3.9 mmol/L (3.5-5.1); Sodium 140 mmol/L (136-145)
[2021-09-14 08:19] LABS: #Eosinphils 0.1 thou/uL (0.0-0.7); #Lymphocytes 0.9 thou/uL (1.20-3.40); #Monocytes 0.6 thou/uL (0.11-0.59); #Neutrophils 7.6 thou/uL (1.40-6.50); %Basophils 0.1 % (0.0-1.0); %Eosinophils 0.8 % (0.0-10.0); %Lymphocytes 9.5 % (21.0-51.0); %Monocytes 6.3 % (0.0-10.0); %Neutrophils 83.3 % (42.0-75.0); Mean Corpuscular HGB CONC 33.8 g/dL (32.0-36.0); Mean Corpuscular Hemoglobin 32.5 pg (27.0-31.0); Mean Platelet Volume 8.3 fL (7.4-10.4); Platelet Count 145 thou/uL (130-400); RBC Distribution Width 11.9 % (11.5-14.5); White Blood Cell (WBC) Count 9.1 thou/uL (4.8-10.8)
[2021-09-14 08:33] VITALS: BP 135/81; TEMP 97.9
[2021-09-14] MEDS: Insulin Glargine 30 UNITS/0.3 ML VIAL SC SCH (08:34)
[2021-09-14] MEDS: Famotidine 20 MG TAB PO SCH (08:35)
[2021-09-14 08:41] LABS: Anion Gap 13 mmol/L (10-20); BUN (Urea Nitrogen) 16 mg/dL (8.4-25.7); Calc. Creatinine Clearance 77 mL/min (70-130); Calcium 8.6 mg/dL (7.8-10.44); Carbon Dioxide 20 mmol/L (23-31); Chloride 110 mmol/L (98-107); Glucose 134 mg/dL (83-110); Potassium 3.6 mmol/L (3.5-5.1); Sodium 139 mmol/L (136-145)
[2021-09-14] MEDS: Acetaminophen 500 MG TAB PO PRN (11:58)
[2021-09-14] MEDS: HumaLOG 300 UNITS/3 ML VIAL SC PRN (12:35)
[2021-09-14 12:47] LABS: Vancomycin, Trough 19.5 ug/mL
== END 2021-09-14 15:34 | disposition home or self-care (01) | DRG 854 ==
LOC: ERS 19:06 → SDC/OP 09-11 00:57 → CCU 09-11 02:08 → T4-B 09-11 15:17
PROVIDERS: ADMIT Internal Medicine; ATTEND Internal Medicine
PROC: 0T778DZ Dilation of Left Ureter with Intraluminal Device, Via Natural or Artificial Opening Endoscopic (ICD-10-PCS; principal; 2021-09-11)
PROC: BT1F1ZZ Fluoroscopy of Left Kidney, Ureter and Bladder using Low Osmolar Contrast (ICD-10-PCS; 2021-09-11)
PROC: 3E03329 Introduction of Other Anti-infective into Peripheral Vein, Percutaneous Approach (ICD-10-PCS; 2021-09-11)
DX: A41.81 Sepsis due to Enterococcus (principal); N17.9 Acute kidney failure, unspecified; N13.6 Pyonephrosis; Z20.822 Contact with and (suspected) exposure to COVID-19; I25.10 Atherosclerotic heart disease of native coronary artery without angina pectoris; N18.30 Chronic kidney disease, stage 3 unspecified; E11.22 Type 2 diabetes mellitus with diabetic chronic kidney disease; N13.9 Obstructive and reflux uropathy, unspecified; E78.2 Mixed hyperlipidemia; I12.9 Hypertensive chronic kidney disease with stage 1 through stage 4 chronic kidney disease, or unspecified chronic kidney disease; Z28.21 Immunization not carried out because of patient refusal; Z79.899 Other long term (current) drug therapy; Z79.82 Long term (current) use of aspirin; Z79.02 Long term (current) use of antithrombotics/antiplatelets; Z79.84 Long term (current) use of oral hypoglycemic drugs; Z90.89 Acquired absence of other organs; Z95.5 Presence of coronary angioplasty implant and graft; Z95.1 Presence of aortocoronary bypass graft; Z87.442 Personal history of urinary calculi; Z82.49 Family history of ischemic heart disease and other diseases of the circulatory system
CPT/HCPCS: 36415; 36416; 71045; 74177; 74420; 80048; 80053; 80202; 81001; 81003; 81015; 83605; 84145; 85025; 87040; 87077; 87086; 87102; 87149; 87186; 93005; 93306; 96361; 96365; 96375; C2617; J0692; J0696; J1170; J1450; J1815; J2270; J2405; J2704; J3010; J3370; J3490; J7050; J7620; Q9966; Q9967; U0003; U0005

== ENCOUNTER 2021-09-16 10:44 | Inpatient (IN) | payer MEDICARE ==
[2021-09-16 11:54] LABS: #Eosinphils 0.2 thou/uL (0.0-0.7); #Lymphocytes 1.1 thou/uL (1.20-3.40); #Monocytes 0.7 thou/uL (0.11-0.59); #Neutrophils 7.7 thou/uL (1.40-6.50); %Eosinophils 1.6 % (0.0-10.0); %Lymphocytes 11.8 % (21.0-51.0); %Monocytes 7.2 % (0.0-10.0); %Neutrophils 79.3 % (42.0-75.0); Hemoglobin 12.2 g/dL (14.0-18.0); Mean Corpuscular HGB CONC 32.7 g/dL (32.0-36.0); Mean Corpuscular Hemoglobin 31.5 pg (27.0-31.0); Mean Corpuscular Volume 96.4 fL (78.0-98.0); Mean Platelet Volume 8.7 fL (7.4-10.4); Platelet Count 268 thou/uL (130-400); RBC Distribution Width 11.8 % (11.5-14.5); Red Blood Cell (RBC) Count 3.86 mill/uL (4.70-6.10); White Blood Cell (WBC) Count 9.7 thou/uL (4.8-10.8)
[2021-09-16 12:08] LABS: ALT (SGPT) 63 U/L (8-55); AST (SGOT) 56 U/L (5-34); Albumin 3.1 g/dL (3.4-4.8); Alkaline Phosphatase 87 U/L (40-110); Anion Gap 14 mmol/L (10-20); BUN (Urea Nitrogen) 18 mg/dL (8.4-25.7); Bilirubin, Total 0.7 mg/dL (0.2-1.2); Calc. Creatinine Clearance 0 mL/min (70-130); Calcium 9.1 mg/dL (7.8-10.44); Carbon Dioxide 24 mmol/L (23-31); Chloride 105 mmol/L (98-107); Globulin 3.6 g/dL (2.4-3.5); Glucose 238 mg/dL (83-110); Potassium 3.8 mmol/L (3.5-5.1); Protein, Total 6.7 g/dL (5.8-8.1); Sodium 139 mmol/L (136-145)
[2021-09-16 12:16] LABS: Critical Call Chem Troponin I NUR.KR7@1215
[2021-09-16 12:34] LABS: CKMB 2.1 ng/mL (0-6.6)
[2021-09-16] MEDS ORDERED: Aspirin Chewable 81 MG TAB ONE (13:04)
[2021-09-16] MEDS ORDERED: Furosemide 40 MG/4 ML VIAL ONE (13:04)
[2021-09-16 16:12] LABS: Critical Call Chem Troponin I RESULT DECREASING; Troponin I 5.495 ng/mL (< 0.028)
[2021-09-16] MEDS ORDERED: Nitroglycerin 0.4 MG TAB (25 Tab Bottle) SL PRN (16:22)
[2021-09-16] MEDS ORDERED: Clopidogrel Bisulfate 75 MG TAB PO SCH (16:30)
[2021-09-16] MEDS ORDERED: Dextrose 5% in Water 1,000 ML IV PRN (16:37)
[2021-09-16] MEDS ORDERED: Dextrose 50% Abboject 50 ML SYRINGE SLOW IVP PRN (16:37)
[2021-09-16] MEDS: Carvedilol 6.25 MG TAB PO SCH (16:54)
[2021-09-16 17:06] VITALS: BMI 27.9
[2021-09-16] MEDS: Ampicillin/Sulbactam 3 GM in Sodium Chloride 0.9% 100 ML IVPB SCH ×2 (17:34→23:15)
[2021-09-16 18:18] LABS: Magnesium 1.9 mg/dL (1.6-2.6)
[2021-09-16 18:20] LABS: CKMB 2.2 ng/mL (0-6.6)
[2021-09-16 18:25] LABS: Critical Call Chem Troponin I RESULT DECREASING; Troponin I 4.915 ng/mL (< 0.028)
[2021-09-16] MEDS: Lisinopril 10 MG TAB PO SCH (20:39)
[2021-09-16] MEDS: HumaLOG 300 UNITS/3 ML VIAL SC PRN (20:40)
[2021-09-16] MEDS ORDERED: Enoxaparin Sodium 40 MG/0.4 ML SYRINGE SC SCH (21:00)
[2021-09-16 23:11] LABS: Critical Call Chem Troponin I RESULT DECREASING
[2021-09-16 23:29] LABS: CKMB 1.7 ng/mL (0-6.6)
[2021-09-17 05:14] LABS: Cardiac Risk 4.3 (Less than 4.5)
[2021-09-17] MEDS: Ampicillin/Sulbactam 3 GM in Sodium Chloride 0.9% 100 ML IVPB SCH ×2 (05:27→10:36)
[2021-09-17] MEDS ORDERED: Furosemide 20 MG/2 ML VIAL SLOW IVP SCH (06:00)
[2021-09-17] MEDS ORDERED: Spironolactone 25 MG TAB PO SCH (08:00)
[2021-09-17] MEDS ORDERED: Clopidogrel Bisulfate 75 MG TAB PO SCH ×2 (09:00)
[2021-09-17] MEDS ORDERED: Aspirin 81 mg Enteric Coated Tablet PO SCH (09:00)
[2021-09-17] MEDS: Carvedilol 6.25 MG TAB PO SCH (10:30)
[2021-09-17] MEDS: Empagliflozin 10 MG TAB PO SCH ×2 (10:35→10:42)
[2021-09-17] MEDS: Lisinopril 10 MG TAB PO SCH (10:35)
[2021-09-17] MEDS: HumaLOG 300 UNITS/3 ML VIAL SC PRN (10:37)
[2021-09-17 11:07] VITALS: BP 124/76; TEMP 97.6
[2021-09-17 12:16] LABS: Critical Call Chem Troponin I RESULT DECREASING; Troponin I 4.078 ng/mL (< 0.028)
[2021-09-17] MEDS ORDERED: Furosemide 20 MG TAB PO SCH (14:00)
== END 2021-09-17 14:05 | disposition home or self-care (01) | DRG 280 ==
LOC: ERS 10:44 → 2SW 15:45
PROVIDERS: ADMIT Family Medicine; ATTEND Internal Medicine
DX: I21.4 Non-ST elevation (NSTEMI) myocardial infarction (principal); I50.23 Acute on chronic systolic (congestive) heart failure; J18.9 Pneumonia, unspecified organism; N12 Tubulo-interstitial nephritis, not specified as acute or chronic; R09.02 Hypoxemia; I25.10 Atherosclerotic heart disease of native coronary artery without angina pectoris; I44.7 Left bundle-branch block, unspecified; I11.0 Hypertensive heart disease with heart failure; E11.9 Type 2 diabetes mellitus without complications; E78.5 Hyperlipidemia, unspecified; Z95.1 Presence of aortocoronary bypass graft; I25.2 Old myocardial infarction; Z95.5 Presence of coronary angioplasty implant and graft; Z79.82 Long term (current) use of aspirin; Z79.899 Other long term (current) drug therapy; Z79.4 Long term (current) use of insulin; Z90.49 Acquired absence of other specified parts of digestive tract; Z82.49 Family history of ischemic heart disease and other diseases of the circulatory system
CPT/HCPCS: 36415; 36416; 71045; 80053; 80061; 82553; 83735; 83880; 84484; 85025; 93005; 93798; 94760; 96374; J0295; J1650; J1815; J1940; J3490

== ENCOUNTER 2021-09-20 06:29 | Emergency (ER) | payer MEDICARE ==
[2021-09-20 07:00] LABS: #Eosinphils 0.2 thou/uL (0.0-0.7); #Lymphocytes 1.6 thou/uL (1.20-3.40); #Monocytes 0.6 thou/uL (0.11-0.59); #Neutrophils 8.3 thou/uL (1.40-6.50); %Basophils 0.2 % (0.0-1.0); %Eosinophils 1.6 % (0.0-10.0); %Lymphocytes 14.9 % (21.0-51.0); %Monocytes 5.3 % (0.0-10.0); %Neutrophils 78.1 % (42.0-75.0); Hemoglobin 13.7 g/dL (14.0-18.0); Mean Corpuscular HGB CONC 31.4 g/dL (32.0-36.0); Mean Corpuscular Hemoglobin 30.4 pg (27.0-31.0); Mean Corpuscular Volume 96.7 fL (78.0-98.0); Mean Platelet Volume 7.9 fL (7.4-10.4); Platelet Count 423 thou/uL (130-400); RBC Distribution Width 11.9 % (11.5-14.5); Red Blood Cell (RBC) Count 4.49 mill/uL (4.70-6.10); White Blood Cell (WBC) Count 10.6 thou/uL (4.8-10.8)
[2021-09-20 07:22] LABS: ALT (SGPT) 54 U/L (8-55); AST (SGOT) 31 U/L (5-34); Albumin 3.6 g/dL (3.4-4.8); Alkaline Phosphatase 89 U/L (40-110); Anion Gap 17 mmol/L (10-20); BUN (Urea Nitrogen) 16 mg/dL (8.4-25.7); Bilirubin, Total 0.7 mg/dL (0.2-1.2); Calc. Creatinine Clearance 0 mL/min (70-130); Carbon Dioxide 25 mmol/L (23-31); Chloride 104 mmol/L (98-107); Globulin 3.5 g/dL (2.4-3.5); Glucose 187 mg/dL (83-110); Potassium 4.5 mmol/L (3.5-5.1); Protein, Total 7.1 g/dL (5.8-8.1); Sodium 141 mmol/L (136-145)
[2021-09-20] MEDS ORDERED: Furosemide 40 MG/4 ML VIAL ONE (07:27)
[2021-09-20] MEDS ORDERED: Nitroglycerin 2% Ointment 1 INCH/1 GM Packet ONE (07:27)
[2021-09-20 07:48] LABS: CKMB 1.8 ng/mL (0-6.6)
[2021-09-20] MEDS ORDERED: Acetaminophen 500 MG TAB ONE (09:31)
== END 2021-09-20 09:37 | disposition home or self-care (01) ==
LOC: ERS 06:29
DX: I11.0 Hypertensive heart disease with heart failure (principal); I50.9 Heart failure, unspecified; E11.9 Type 2 diabetes mellitus without complications; Z79.899 Other long term (current) drug therapy; Z79.82 Long term (current) use of aspirin
CPT/HCPCS: 71045; 80053; 82553; 83880; 84484; 85025; 93005; 96374; J1940

== ENCOUNTER 2021-10-31 15:11 | Observation (INO) | payer MEDICARE ==
[2021-10-31 15:54] LABS: #Eosinphils 0.2 thou/uL (0.0-0.7); #Lymphocytes 2.3 thou/uL (1.20-3.40); #Monocytes 0.7 thou/uL (0.11-0.59); #Neutrophils 4.7 thou/uL (1.40-6.50); %Basophils 0.5 % (0.0-1.0); %Eosinophils 2.5 % (0.0-10.0); %Monocytes 8.7 % (0.0-10.0); %Neutrophils 59.3 % (42.0-75.0); Hemoglobin 13.5 g/dL (14.0-18.0); Mean Corpuscular HGB CONC 33.5 g/dL (32.0-36.0); Mean Corpuscular Hemoglobin 31.1 pg (27.0-31.0); Mean Corpuscular Volume 92.7 fL (78.0-98.0); Mean Platelet Volume 7.5 fL (7.4-10.4); Platelet Count 220 thou/uL (130-400); Red Blood Cell (RBC) Count 4.33 mill/uL (4.70-6.10); White Blood Cell (WBC) Count 7.9 thou/uL (4.8-10.8)
[2021-10-31] MEDS ORDERED: Acetaminophen 500 MG TAB ONE (15:55)
[2021-10-31 16:14] LABS: Anion Gap 14 mmol/L (10-20); BUN (Urea Nitrogen) 20 mg/dL (8.4-25.7); Calc. Creatinine Clearance 0 mL/min (70-130); Calcium 9.6 mg/dL (7.8-10.44); Carbon Dioxide 23 mmol/L (23-31); Chloride 104 mmol/L (98-107); Estimated GFR 63; Glucose 189 mg/dL (83-110); Potassium 3.7 mmol/L (3.5-5.1); Sodium 137 mmol/L (136-145)
[2021-10-31 16:42] LABS: CKMB 1.6 ng/mL (0-6.6)
[2021-10-31] MEDS ORDERED: Nitroglycerin 0.4 MG TAB (25 Tab Bottle) SL PRN (18:23)
[2021-10-31] MEDS ORDERED: hydrALAZINE 20 MG/ML VIAL SLOW IVP PRN (18:31)
[2021-10-31] MEDS ORDERED: hydrALAZINE 20 MG/ML VIAL ONE (20:01)
[2021-10-31] MEDS ORDERED: Atorvastatin Calcium 40 MG TAB PO SCH (21:00)
[2021-10-31] MEDS: Lisinopril 10 MG TAB PO SCH (22:09)
[2021-10-31 22:16] LABS: Troponin I 0.258 ng/mL (< 0.028)
[2021-11-01 01:36] VITALS: BMI 27.1
[2021-11-01] MEDS ORDERED: Carvedilol 6.25 MG TAB PO SCH ×2 (08:00→09:00)
[2021-11-01] MEDS ORDERED: Clopidogrel Bisulfate 75 MG TAB PO SCH (09:00)
[2021-11-01] MEDS ORDERED: Furosemide 20 MG TAB PO SCH (09:00)
[2021-11-01] MEDS ORDERED: Empagliflozin 10 MG TAB PO SCH (09:00)
[2021-11-01] MEDS ORDERED: Non-Formulary Item 1 EACH (Insulin Glargine,Hum.Rec.Anlog [Toujeo Solostar] 300 UNIT/ML I SQ SCH (09:00)
[2021-11-01] MEDS ORDERED: Aspirin Chewable 81 MG TAB PO SCH (09:00)
[2021-11-01] MEDS ORDERED: Insulin Glargine 30 UNITS/0.3 ML VIAL SC SCH (09:00)
[2021-11-01] MEDS: Lisinopril 10 MG TAB PO SCH (09:05)
[2021-11-01 12:30] VITALS: BP 127/82; TEMP 98.2
== END 2021-11-01 13:15 | disposition home or self-care (01) ==
LOC: ERS 15:11 → 2SW 17:52
PROVIDERS: ADMIT Hospitalist; ATTEND Hospitalist
DX: I16.1 Hypertensive emergency (principal); R77.8 Other specified abnormalities of plasma proteins; R07.9 Chest pain, unspecified; I25.2 Old myocardial infarction; I13.0 Hypertensive heart and chronic kidney disease with heart failure and stage 1 through stage 4 chronic kidney disease, or unspecified chronic kidney disease; E11.22 Type 2 diabetes mellitus with diabetic chronic kidney disease; N18.30 Chronic kidney disease, stage 3 unspecified; I50.9 Heart failure, unspecified; I25.10 Atherosclerotic heart disease of native coronary artery without angina pectoris; E78.5 Hyperlipidemia, unspecified; Z79.02 Long term (current) use of antithrombotics/antiplatelets; Z79.4 Long term (current) use of insulin; Z79.82 Long term (current) use of aspirin; Z79.899 Other long term (current) drug therapy; Z95.1 Presence of aortocoronary bypass graft; Z95.5 Presence of coronary angioplasty implant and graft; Z20.822 Contact with and (suspected) exposure to COVID-19
CPT/HCPCS: 80048; 82553; 84484 ×2; 85025; 93005; 99285; G0378 ×3; U0003; U0005; 36415; J0360; J1815

== ENCOUNTER 2022-11-04 19:14 | Emergency (ER) | payer MEDICARE | END 2022-11-04 20:11 | disposition left against medical advice (07) | LOC: ERS 19:14 | DX: Z53.21 Procedure and treatment not carried out due to patient leaving prior to being seen by health care provider (principal) | CPT/HCPCS: 93005 ==

== ENCOUNTER 2023-03-06 14:13 | Inpatient (IN) | payer MEDICARE ==
[2023-03-06] MEDS ORDERED: Nitroglycerin 2% Ointment 1 INCH/1 GM Packet ONE (14:29)
[2023-03-06 14:44] LABS: #Eosinphils 0.1 thou/uL (0.0-0.7); #Monocytes 0.6 thou/uL (0.11-0.59); #Neutrophils 4.8 thou/uL (1.40-6.50); %Basophils 0.5 % (0.0-1.0); %Eosinophils 1.2 % (0.0-10.0); %Lymphocytes 31.6 % (21.0-51.0); %Neutrophils 59.5 % (42.0-75.0); Hemoglobin 14.6 g/dL (14.0-18.0); Mean Corpuscular HGB CONC 33.2 g/dL (32.0-36.0); Mean Corpuscular Hemoglobin 30.7 pg (27.0-31.0); Mean Corpuscular Volume 92.6 fl (78.0-98.0); Mean Platelet Volume 9.7 fL (7.4-10.4); Platelet Count 200 10x3/uL (130-400); RBC Distribution Width 13.2 % (11.5-14.5); Red Blood Cell (RBC) Count 4.75 mill/uL (4.70-6.10)
[2023-03-06 15:15] LABS: ALT (SGPT) 15 U/L (8-55); AST (SGOT) 42 U/L (5-34); Albumin 4.2 g/dL (3.4-4.8); Alkaline Phosphatase 61 U/L (40-110); Anion Gap 11 mmol/L (10-20); BUN (Urea Nitrogen) 16 mg/dL (8.4-25.7); Bilirubin, Total 0.5 mg/dL (0.2-1.2); Calc. Creatinine Clearance 0 mL/min (70-130); Calcium 9.4 mg/dL (7.8-10.44); Carbon Dioxide 22 mmol/L (23-31); Chloride 111 mmol/L (98-107); Estimated GFR 57; Globulin 2.9 g/dL (2.4-3.5); Glucose 151 mg/dL (83-110); Lipase 31 U/L (8-78); Potassium 4.3 mmol/L (3.5-5.1); Protein, Total 7.1 g/dL (5.8-8.1); Sodium 140 mmol/L (136-145)
[2023-03-06 15:19] LABS: Troponin I 5.831 ng/mL (< 0.028)
[2023-03-06] MEDS ORDERED: Nitroglycerin 0.4 MG TAB (25 Tab Bottle) SL PRN (15:58)
[2023-03-06] MEDS ORDERED: Morphine 2 MG/ML VIAL SLOW IVP PRN (15:58)
[2023-03-06] MEDS ORDERED: Ondansetron ODT 4 MG TAB PO PRN (15:58)
[2023-03-06] MEDS ORDERED: Dextrose 50% Abboject 50 ML SYRINGE SLOW IVP PRN (16:10)
[2023-03-06] MEDS ORDERED: Glucagon 1 MG/ML KIT IM PRN (16:10)
[2023-03-06] MEDS ORDERED: Insulin Regular 300 UNITS/3 ML VIAL SC PRN (16:10)
[2023-03-06] MEDS ORDERED: Dextrose 5% in Water 1,000 ML IV PRN (16:10)
[2023-03-06 17:20] VITALS: BMI 27.7
[2023-03-06] MEDS ORDERED: hydrALAZINE 20 MG/ML VIAL SLOW IVP PRN (17:29)
[2023-03-06 17:49] LABS: Hemoglobin A1c 7.9 % (4.0-6.0)
[2023-03-06 18:06] LABS: Magnesium 2.2 mg/dL (1.6-2.6)
[2023-03-06 18:24] LABS: Troponin I 12.592 ng/mL (< 0.028)
[2023-03-06] MEDS ORDERED: Morphine 2 MG/ML VIAL SLOW IVP SCH (18:45)
[2023-03-06] MEDS ORDERED: Amlodipine 5 MG TAB PO SCH (18:45)
[2023-03-06] MEDS: Atorvastatin Calcium 40 MG TAB PO SCH (22:00)
[2023-03-06] MEDS: Acetaminophen 325 MG TAB PO PRN (22:02)
[2023-03-06] MEDS: Famotidine 20 MG TAB PO SCH (22:02)
[2023-03-07 04:26] LABS: #Monocytes 0.5 thou/uL (0.11-0.59); #Neutrophils 6.2 thou/uL (1.40-6.50); %Basophils 0.2 % (0.0-1.0); %Eosinophils 0.1 % (0.0-10.0); %Neutrophils 73.6 % (42.0-75.0); Hematocrit 41.3 % (42.0-52.0); Hemoglobin 13.6 g/dL (14.0-18.0); Mean Corpuscular HGB CONC 32.9 g/dL (32.0-36.0); Mean Corpuscular Hemoglobin 30.4 pg (27.0-31.0); Mean Corpuscular Volume 92.4 fl (78.0-98.0); Mean Platelet Volume 10.5 fL (7.4-10.4); Platelet Count 175 10x3/uL (130-400); RBC Distribution Width 13.2 % (11.5-14.5); Red Blood Cell (RBC) Count 4.47 mill/uL (4.70-6.10); White Blood Cell (WBC) Count 8.4 10x3/uL (4.8-10.8)
[2023-03-07 04:56] LABS: Anion Gap 13 mmol/L (10-20); BUN (Urea Nitrogen) 14 mg/dL (8.4-25.7); Calc. Creatinine Clearance 94 mL/min (70-130); Calcium 8.8 mg/dL (7.8-10.44); Carbon Dioxide 19 mmol/L (23-31); Cardiac Risk 2.7 (Less than 4.5); Chloride 109 mmol/L (98-107); Cholesterol 103 mg/dl (< 200 Desired); Estimated GFR 88; Glucose 201 mg/dL (83-110); HDL Cholesterol 38 mg/dL (>60 Neg Risk); LDL Cholesterol, Calculated 38 mg/dL; Potassium 3.8 mmol/L (3.5-5.1); Sodium 137 mmol/L (136-145); Triglycerides 136 mg/dL (Less than 150)
[2023-03-07] MEDS ORDERED: Clopidogrel Bisulfate 75 MG TAB PO SCH (09:00)
[2023-03-07] MEDS ORDERED: Communication Order-Pharmacy FS SCH (09:15)
[2023-03-07] MEDS: Furosemide 20 MG TAB PO SCH ×2 (09:43→20:25)
[2023-03-07] MEDS: ALPRAZolam 0.25 MG TAB PO SCH ×2 (09:43→20:25)
[2023-03-07] MEDS: Lisinopril 10 MG TAB PO SCH (09:46)
[2023-03-07] MEDS: Aspirin 81 mg Enteric Coated Tablet PO SCH (09:46)
[2023-03-07] MEDS: Carvedilol 6.25 MG TAB PO SCH ×2 (09:47→20:26)
[2023-03-07] MEDS: Famotidine 20 MG TAB PO SCH ×2 (09:47→20:26)
[2023-03-07] MEDS: Amlodipine 5 MG TAB PO SCH (09:48)
[2023-03-07] MEDS ORDERED: Heparin 10,000 UNITS/ 10 ML VIAL ONE (11:05)
[2023-03-07] MEDS ORDERED: Lidocaine 1% (PF) 30 ML VIAL ONE (11:05)
[2023-03-07] MEDS ORDERED: Nitroglycerin 50 MG/250 ML BOT 0 ML ONE (11:05)
[2023-03-07] MEDS ORDERED: Verapamil 5 MG/2 ML VIAL ONE (11:05)
[2023-03-07] MEDS ORDERED: Midazolam HCl 2 mg/2 ml Vial ONE (11:06)
[2023-03-07] MEDS ORDERED: fentaNYL 50 mcg/mL 1 mL Vial ONE (11:06)
[2023-03-07] MEDS ORDERED: Morphine 4 MG/ML VIAL ONE (12:38)
[2023-03-07] MEDS ORDERED: Iopamidol 370 76% 100 ML VIAL ONE (13:59)
[2023-03-07] MEDS: Acetaminophen 325 MG TAB PO PRN (20:14)
[2023-03-07] MEDS: Atorvastatin Calcium 40 MG TAB PO SCH (20:25)
[2023-03-07] MEDS: TICAGRELOR 90 MG TABLET PO SCH (20:26)
[2023-03-08 04:41] LABS: #Monocytes 0.8 thou/uL (0.11-0.59); #Neutrophils 6.4 thou/uL (1.40-6.50); %Basophils 0.2 % (0.0-1.0); %Eosinophils 0.2 % (0.0-10.0); %Lymphocytes 17.6 % (21.0-51.0); %Neutrophils 72.8 % (42.0-75.0); Hematocrit 41.7 % (42.0-52.0); Hemoglobin 13.6 g/dL (14.0-18.0); Mean Corpuscular HGB CONC 32.6 g/dL (32.0-36.0); Mean Corpuscular Hemoglobin 30.3 pg (27.0-31.0); Mean Corpuscular Volume 92.9 fl (78.0-98.0); Mean Platelet Volume 10.8 fL (7.4-10.4); Platelet Count 178 10x3/uL (130-400); RBC Distribution Width 13.4 % (11.5-14.5); Red Blood Cell (RBC) Count 4.49 mill/uL (4.70-6.10); White Blood Cell (WBC) Count 8.8 10x3/uL (4.8-10.8)
[2023-03-08 04:57] LABS: INR-International Normal Ratio 1.1; Prothrombin Time 14.5 sec (12.0-14.7)
[2023-03-08 04:58] LABS: PTT 30.2 sec (22.9-36.1)
[2023-03-08 05:09] LABS: ALT (SGPT) 26 U/L (8-55); AST (SGOT) 100 U/L (5-34); Albumin 3.9 g/dL (3.4-4.8); Alkaline Phosphatase 59 U/L (40-110); Anion Gap 14 mmol/L (10-20); BUN (Urea Nitrogen) 11 mg/dL (8.4-25.7); Bilirubin, Total 1.2 mg/dL (0.2-1.2); Calc. Creatinine Clearance 80 mL/min (70-130); Calcium 9.1 mg/dL (7.8-10.44); Carbon Dioxide 21 mmol/L (23-31); Chloride 106 mmol/L (98-107); Estimated GFR 72; Globulin 2.9 g/dL (2.4-3.5); Glucose 170 mg/dL (83-110); Magnesium 1.9 mg/dL (1.6-2.6); Potassium 3.5 mmol/L (3.5-5.1); Protein, Total 6.8 g/dL (5.8-8.1); Sodium 137 mmol/L (136-145)
[2023-03-08 05:36] LABS: Troponin I Greater than 45.000 ng/mL (< 0.028)
[2023-03-08] MEDS: ALPRAZolam 0.25 MG TAB PO SCH (09:03)
[2023-03-08] MEDS: Furosemide 20 MG TAB PO SCH (09:03)
[2023-03-08] MEDS: Famotidine 20 MG TAB PO SCH (09:03)
[2023-03-08] MEDS: Carvedilol 6.25 MG TAB PO SCH (09:05)
[2023-03-08] MEDS: Amlodipine 5 MG TAB PO SCH (09:05)
[2023-03-08] MEDS: Aspirin 81 mg Enteric Coated Tablet PO SCH (09:05)
[2023-03-08] MEDS: Lisinopril 10 MG TAB PO SCH (09:05)
[2023-03-08] MEDS: TICAGRELOR 90 MG TABLET PO SCH (09:06)
[2023-03-08 12:37] VITALS: BP 118/65; TEMP 98.6
== END 2023-03-08 15:15 | disposition home or self-care (01) | DRG 322 ==
LOC: ERS 14:13 → 2NO 16:57
PROVIDERS: ADMIT Family Medicine; ATTEND Family Medicine
PROC: 027035Z Dilation of Coronary Artery, One Artery with Two Drug-eluting Intraluminal Devices, Percutaneous Approach (ICD-10-PCS; principal; 2023-03-07)
PROC: 4A023N7 Measurement of Cardiac Sampling and Pressure, Left Heart, Percutaneous Approach (ICD-10-PCS; 2023-03-07)
PROC: B2111ZZ Fluoroscopy of Multiple Coronary Arteries using Low Osmolar Contrast (ICD-10-PCS; 2023-03-07)
PROC: B2151ZZ Fluoroscopy of Left Heart using Low Osmolar Contrast (ICD-10-PCS; 2023-03-07)
PROC: B2121ZZ Fluoroscopy of Single Coronary Artery Bypass Graft using Low Osmolar Contrast (ICD-10-PCS; 2023-03-07)
DX: I21.4 Non-ST elevation (NSTEMI) myocardial infarction (principal); I25.10 Atherosclerotic heart disease of native coronary artery without angina pectoris; I11.0 Hypertensive heart disease with heart failure; I50.9 Heart failure, unspecified; E11.9 Type 2 diabetes mellitus without complications; I44.7 Left bundle-branch block, unspecified; E78.5 Hyperlipidemia, unspecified; Z79.82 Long term (current) use of aspirin; Z79.899 Other long term (current) drug therapy; Z79.4 Long term (current) use of insulin; Z95.1 Presence of aortocoronary bypass graft; Z95.5 Presence of coronary angioplasty implant and graft
CPT/HCPCS: 36415; 36416; 71045; 80048; 80053; 80061; 83036; 83690; 83735; 83880; 84443; 84484; 85025; 85347; 85610; 85730; 92937; 92973; 93005; 93010; 93459; 96372; 97139; 99152; 99153; C1725; C1769; C1874; C1887; C9604; J0360; J1644; J1650; J2001; J2250; J2270; J2272; J3010; Q9967

== ENCOUNTER 2024-01-05 04:16 | Observation (INO) | payer MEDICARE ==
[2024-01-05 04:52] LABS: #Basophils Less than 0.03 10x3/uL (0.0-0.2); %Basophils 0.3 % (0.0-1.0); %Eosinophils 2.1 % (0.0-10.0); %Lymphocytes 39.9 % (21.0-51.0); %Neutrophils 49.5 % (42.0-75.0); Hematocrit 44.3 % (42.0-52.0); Hemoglobin 14.3 g/dL (14.0-18.0); Mean Corpuscular HGB CONC 32.3 g/dL (32.0-36.0); Mean Corpuscular Hemoglobin 30.7 pg (27.0-31.0); Mean Corpuscular Volume 95.1 fL (78.0-98.0); Mean Platelet Volume 10.3 fL (7.4-10.4); Platelet Count 179 10x3/uL (130-400); RBC Distribution Width 12.4 % (11.5-14.5); Red Blood Cell (RBC) Count 4.66 mill/uL (4.70-6.10)
[2024-01-05 05:33] LABS: ALT (SGPT) 19 U/L (8-55); AST (SGOT) 18 U/L (5-34); Albumin 3.9 g/dL (3.4-4.8); Alkaline Phosphatase 57 U/L (40-110); Anion Gap 13 mmol/L (10-20); BUN (Urea Nitrogen) 26 mg/dL (8.4-25.7); Bilirubin, Total 0.5 mg/dL (0.2-1.2); Calc. Creatinine Clearance 0 mL/min (70-130); Calcium 9.5 mg/dL (7.8-10.44); Carbon Dioxide 22 mmol/L (23-31); Chloride 109 mmol/L (98-107); Estimated GFR 55; Glucose 173 mg/dL (83-110); Protein, Total 6.9 g/dL (5.8-8.1); Sodium 140 mmol/L (136-145)
[2024-01-05 05:37] LABS: Troponin I 0.094 ng/mL (< 0.028)
[2024-01-05] MEDS ORDERED: Enoxaparin 100 MG (1 mL) SYRINGE ONE (06:13)
[2024-01-05] MEDS ORDERED: Ondansetron ODT 4 MG TAB PO PRN (08:04)
[2024-01-05] MEDS ORDERED: Nitroglycerin 0.4 MG TAB (25 Tab Bottle) SL PRN (08:04)
[2024-01-05] MEDS ORDERED: Dextrose 50% Abboject 50 ML SYRINGE SLOW IVP PRN (08:04)
[2024-01-05] MEDS ORDERED: Glucagon 1 MG/ML KIT IM PRN (08:04)
[2024-01-05] MEDS ORDERED: Acetaminophen 325 MG TAB PO PRN (08:04)
[2024-01-05] MEDS ORDERED: Dextrose 5% in Water 1,000 ML IV PRN (08:04)
[2024-01-05 08:51] LABS: Troponin I 0.099 ng/mL (< 0.028)
[2024-01-05 09:05] VITALS: BMI 27.2
[2024-01-05] MEDS ORDERED: Furosemide 40 MG TAB ONE (09:13)
[2024-01-05] MEDS ORDERED: Aspirin Chewable 81 MG TAB ONE (09:13)
[2024-01-05] MEDS ORDERED: Carvedilol 6.25 MG TAB ONE (09:13)
[2024-01-05] MEDS ORDERED: Amlodipine 5 MG TAB ONE (09:13)
[2024-01-05] MEDS ORDERED: Famotidine 20 MG TAB ONE (09:13)
[2024-01-05] MEDS ORDERED: ALPRAZolam 0.25 MG TAB ONE (09:13)
[2024-01-05] MEDS: Carvedilol 6.25 MG TAB PO SCH ×2 (09:21→16:22)
[2024-01-05] MEDS: Famotidine 20 MG TAB PO SCH (09:29)
[2024-01-05] MEDS: Amlodipine 5 MG TAB PO SCH (09:29)
[2024-01-05] MEDS: Aspirin Chewable 81 MG TAB PO SCH (09:29)
[2024-01-05] MEDS: ALPRAZolam 0.25 MG TAB PO SCH (09:29)
[2024-01-05] MEDS: TICAGRELOR 90 MG TABLET PO SCH (09:30)
[2024-01-05] MEDS: Furosemide 20 MG TAB PO SCH (09:30)
[2024-01-05] MEDS ORDERED: Lisinopril 10 MG TAB ONE (09:36)
[2024-01-05] MEDS: Lisinopril 10 MG TAB PO SCH (09:40)
[2024-01-05 09:48] LABS: Cardiac Risk 2.3 (Less than 4.5)
[2024-01-05] MEDS ORDERED: Insulin Regular, Human 100 UNIT/ML 10 ML VIAL ONE (09:52)
[2024-01-05] MEDS: Insulin Regular, Human 100 UNIT/ML 10 ML VIAL SC PRN (09:56)
[2024-01-05 10:51] LABS: Hemoglobin A1c 8.1 % (4.0-6.0)
[2024-01-05 11:07] LABS: Troponin I 0.093 ng/mL (< 0.028)
[2024-01-05] MEDS ORDERED: Carvedilol 3.125 MG TAB PO SCH (17:00)
[2024-01-06 04:06] LABS: Anion Gap 11 mmol/L (10-20); BUN (Urea Nitrogen) 24 mg/dL (8.4-25.7); Calc. Creatinine Clearance 72 mL/min (70-130); Calcium 9.2 mg/dL (7.8-10.44); Carbon Dioxide 23 mmol/L (23-31); Chloride 110 mmol/L (98-107); Estimated GFR 65; Glucose 173 mg/dL (83-110); Sodium 140 mmol/L (136-145)
[2024-01-06 07:50] VITALS: BP 134/84; TEMP 98.3
[2024-01-06] MEDS: Enoxaparin 40 MG (0.4 mL) SYRINGE SC SCH (08:22)
[2024-01-06] MEDS: Lisinopril 20 MG TAB PO SCH (08:23)
== END 2024-01-06 14:30 | disposition home or self-care (01) ==
LOC: ERS 04:16 → ERHOLD 07:37 → 2SW 14:05
PROVIDERS: ADMIT Internal Medicine; ATTEND Family Medicine
PROC: B246ZZZ Ultrasonography of Right and Left Heart (ICD-10-PCS; principal; 2024-01-05)
DX: I16.0 Hypertensive urgency (principal); R07.9 Chest pain, unspecified; I11.0 Hypertensive heart disease with heart failure; I50.9 Heart failure, unspecified; E11.9 Type 2 diabetes mellitus without complications; Z95.1 Presence of aortocoronary bypass graft; Z95.5 Presence of coronary angioplasty implant and graft; I25.2 Old myocardial infarction; E78.5 Hyperlipidemia, unspecified; I25.10 Atherosclerotic heart disease of native coronary artery without angina pectoris; Z79.899 Other long term (current) drug therapy; R79.89 Other specified abnormal findings of blood chemistry
CPT/HCPCS: 71045; 80048; 80053; 80061; 82962; 83036; 83880; 84484 ×2; 85025; 93005; 93306; 99285; G0378 ×3; J1650; J1815; 36415; 36416

== ENCOUNTER 2025-03-08 08:19 | Emergency (ER) | payer MEDICARE ==
[2025-03-08 08:38] LABS: #Basophils 0.03 10x3/uL (0.0-0.2); #Eosinophils 0.06 10x3/uL (0.0-0.7); #Monocytes 0.38 10x3/uL (0.11-0.59); #Neutrophils 4.24 10x3/uL (1.40-6.50); %Basophils 0.5 % (0.0-1.0); %Eosinophils 1.0 % (0.0-10.0); %Lymphocytes 25.1 % (21.0-51.0); %Monocytes 6.0 % (0.0-10.0); %Neutrophils 67.2 % (42.0-75.0); Hematocrit 45.0 % (42.0-52.0); Hemoglobin 14.7 g/dL (14.0-18.0); Mean Corpuscular Hemoglobin 29.9 pg (27.0-31.0); Mean Corpuscular Volume 91.6 fL (78.0-98.0); Platelet Count 181 10x3/uL (130-400); Red Blood Cell (RBC) Count 4.91 mill/uL (4.70-6.10); White Blood Cell (WBC) Count 6.30 10x3/uL (4.8-10.8)
[2025-03-08 08:57] LABS: ALT (SGPT) 19 U/L (Less than 45); AST (SGOT) 33 U/L (11-34); Albumin 4.2 g/dL (3.1-4.5); Alkaline Phosphatase 60 U/L (40-110); Anion Gap 13 mmol/L (10-20); BUN (Urea Nitrogen) 19 mg/dL (8.4-25.7); Bilirubin, Total 0.8 mg/dL (0.3-1.2); Calc. Creatinine Clearance 0 mL/min (70-130); Calcium 9.6 mg/dL (7.8-10.44); Carbon Dioxide 25 mmol/L (23-31); Chloride 106 mmol/L (98-107); Globulin 3.2 g/dL (2.4-3.5); Glucose 196 mg/dL (83-110); Potassium 4.6 mmol/L (3.5-5.1); Sodium 139 mmol/L (136-145)
[2025-03-08] MEDS ORDERED: Aspirin Chewable 81 MG TAB ONE (08:59)
[2025-03-08] MEDS ORDERED: Nitroglycerin 2% Ointment 1 INCH/1 GM Packet ONE (09:42)
== END 2025-03-08 12:24 | disposition home or self-care (01) ==
LOC: ERS 08:19
DX: R07.89 Other chest pain (principal); I10 Essential (primary) hypertension; E11.9 Type 2 diabetes mellitus without complications; I25.2 Old myocardial infarction; Z95.1 Presence of aortocoronary bypass graft; Z95.5 Presence of coronary angioplasty implant and graft; Z55.6 Problems related to health literacy; Z79.899 Other long term (current) drug therapy; Z79.82 Long term (current) use of aspirin
CPT/HCPCS: 71045; 71275; 80053; 83690; 84484; 85025; 85379; 93005